=== PATIENT | male | born 1960 | race Caucasian/White ===

== ENCOUNTER 2017-08-23 14:21 | Inpatient (IN) ==
--- NOTE | 2017-08-23 14:55 | Emergency Department Note ---
Disposition Clinical Impression: Suicidal ideation Depression Qualifiers: Depression Type: unspecified Qualified Code(s): F32.9 - Major depressive disorder, single episode, unspecified Disposition: Admitted As Inpatient Condition: Good Referrals: Nicolas Acosta MD [Primary Care Provider] - Time of Disposition: 17:34 General Adult HPI - General Stated complaint: SI/HI Time Seen by Provider: 08/23/17 14:44 Source: patient Mode of arrival: ambulatory Limitations: no limitations Nursing Notes Reviewed: Yes Vital Signs Reviewed: Yes - History of Present Illness HPI Narrative: 56-year-old male presenting to the emergency department with chief complaint of suicidal ideation and plan. The patient states he has had psychiatric issues in the past and has been hospitalized with the last hospitalization occurring approximately 7 years ago. Patient states he has been feeling suicidal due to chronic pain issues and a benign brain tumor he was told he had. Patient stated he was going to himself. Denies homicidal ideation. Denies visual or auditory hallucinations. The patient also denies any intentional ingestions. No new medication changes at this time. Patient does follow with psychiatry as an outpatient. - Related Data Home Medications Medication Instructions Recorded Confirmed Metformin [Glucophage] 1,000 mg PO BIDWM 07/18/15 07/18/15 glipiZIDE [Glucotrol] 10 mg PO 0800 07/18/15 07/18/15 Lisinopril 08/19/17 Previous Rx's Medication Instructions Recorded Cyclobenzaprine [Flexeril] 10 mg PO HS #3 tablet 08/19/17 Diclofenac Potassium 50 mg PO TID PRN #20 tablet 08/19/17 predniSONE [PredniSONE] 20 mg PO BID #10 tablet 08/19/17 Allergies Allergy/AdvReac Type Severity Reaction Status Date / Time hydrocodone [From Vicodin] AdvReac Nausea Verified 08/19/17 16:51 pregabalin [From Lyrica] AdvReac Agitated Verified 08/19/17 16:51 All systems ED: reviewed and negative except as stated. Constitutional: Denies: fever, chills, weakness Eyes: Reports: as per HPI ENT ED: Reports: as per HPI Cardiovascular: Denies: chest pain, palpitations Respiratory: Denies: cough, dyspnea, wheezes Gastrointestinal: Reports: nausea, diarrhea. Denies: abdominal pain Genitourinary: Reports: as per HPI Musculoskeletal: Reports: back pain Integumentary: Reports: as per HPI Neurological: Denies: headache, weakness, numbness, paresthesias Psychiatric: Reports: as per HPI Endocrine: Reports: as per HPI Hematological/Lymphatic: Reports: as per HPI Allergic/Immunologic: Reports: as per HPI Past Medical History - Past Medical History Attestation: Yes The following information was validated with the patient. Medical history: Reports: non-contributory Surgical history: Reports: other Psychiatric history: Reports: anxiety - Social History Smoking Status: Never smoker Smokeless Tobacco Status: No Alcohol use: Reports: none Drug use: Reports: none Physical Exam - General Limitations: no limitations General appearance: alert, in no apparent distress - Head Head exam: atraumatic, normocephalic, normal inspection - Eye Eye exam: Present: normal appearance, PERRL - Neck Neck exam: Present: normal inspection, full ROM - Chest Chest inspection: Present: normal inspection, symmetric chest wall rise. Absent : tenderness - Respiratory Respiratory exam: Present: normal lung sounds bilaterally. Absent: respiratory distress, wheezes - Cardiovascular Cardiovascular exam: Present: regular rate, normal rhythm, normal heart sounds - Abdominal Exam Abdominal exam: Present: soft, Non-Tender. Absent: distention, guarding, rebound - Extremities Exam Extremities exam: Present: normal inspection, full ROM - Neurological Exam Neurological exam: Present: alert, oriented X3 - Psychiatric Psychiatric exam: Present: normal affect, normal mood - Skin Skin exam: Present: warm, intact Course Course Narrative: 56-year-old male presenting to the emergency department for suicidal ideation with plan. We will perform basic lab workup in the emergency department and provide him with a sitter at this time. Once lab work comes back we will reach out to [facility] to determine patient's disposition. - Reevaluation(s) Reevaluation #1: Patient evaluated and accepted by [facility]. patient will now be transferred to inpatient psychiatric services. Time: 17:34 Vital Signs Temperature 98.1 F 08/23/17 15:04 Pulse Rate 100 08/23/17 15:04 Respiratory Rate 18 08/23/17 15:04 Blood Pressure 148/94 08/23/17 15:04 O2 Sat by Pulse Oximetry 95 08/23/17 15:04 Temperature 98.1 F 08/23/17 15:04 Pulse Rate 100 08/23/17 15:04 Respiratory Rate 18 08/23/17 15:04 Blood Pressure 148/94 08/23/17 15:04 O2 Sat by Pulse Oximetry 95 08/23/17 15:04 Oxygen Delivery Oxygen Delivery Room Air Medical Decision Making - Lab Data Result diagrams: 08/23/17 15:10 08/23/17 15:10 Lab Results 08/23/17 08/23/17 08/23/17 Range/Units 15:10 15:10 15:43 WBC 13.8 H (4.3-11.1) K/mcL RBC 4.58 (4.19-5.50) M/mcL Hgb 13.6 (12.9-16.9) g/dL Hct 40.7 (37.5-50.1) % MCV 88.9 (83.0-100.0) fL MCH 29.7 (28.0-33.3) pg MCHC 33.4 (31.6-35.5) g/dL RDW 12.2 (11.5-14.5) % Plt Count 311 (140-400) K/mcL MPV 9.5 (9.4-12.4) fL Immature Gran % 0.3 (0-4) % Seg Neutrophils % 67.2 % Lymphocytes % 19.9 % Monocytes % 7.2 % Eosinophils % 4.6 % Basophils % 0.8 % Neutrophils # 9.3 H (1.6-8.9) K/mcL Lymphocytes # 2.8 (0.6-4.6) K/mcL Monocytes # 1.0 (0.0-1.3) K/mcL Eosinophils # 0.6 (0.0-0.6) K/mcL Basophils # 0.1 (0.0-0.2) K/mcL Sodium 138 (136-145) mEq/L Potassium 4.5 (3.5-4.5) mEq/L Chloride 102 (98-109) mEq/L Carbon Dioxide 25 (19-29) mEq/L BUN 13 (8-26) mg/dL Creatinine 1.19 (0.72-1.25) mg/dL Est GFR ( Amer) > 60 (> 60) Est GFR (Non-Af Amer) > 60 (> 60) BUN/Creatinine Ratio 11 (6-26) Glucose 231 H (70-99) mg/dL Calculated Osmolality 293 (280-300) Calcium 8.9 (8.6-10.8) mg/dL Urine Color Yellow (Yellow) Urine Clarity Clear (Clear) Urine pH 6.0 (5.0-8.0) pH Units Ur Specific [place] 1.017 (1.010-1.025) Urine Protein Negative (Neg-Trace) mg/dL Urine Glucose (UA) >=1000 H (Normal) mg/dL Urine Ketones Negative (Negative) mg/dL Urine Blood Negative (Negative) Urine Nitrite Negative (Negative) Urine Bilirubin Negative (Negative) Urine Urobilinogen Normal (Normal) mg/dL Ur Leukocyte Esterase Negative (Negative) Salicylates < 5.0 L (15-30) mg/dL Urine Opiates Screen (Eqdxwd=050) ng/mL Acetaminophen < 1.0 L (10-30) mcg/mL Ur Barbiturates Screen (Axzywb=562) ng/mL Ur Phencyclidine Scrn (Cutoff=25) ng/mL Ur Amphetamines Screen (Sveppl=7607) ng/mL U Benzodiazepines Scrn (Beabic=612) ng/mL Urine Cocaine Screen (Cutoff= 300) ng/mL U Marijuana (THC) Screen (Cutoff = 50) ng/mL Ethyl Alcohol < 10 (0-10) mg/dL 08/23/17 Range/Units 15:43 WBC (4.3-11.1) K/mcL RBC (4.19-5.50) M/mcL Hgb (12.9-16.9) g/dL Hct (37.5-50.1) % MCV (83.0-100.0) fL MCH (28.0-33.3) pg MCHC (31.6-35.5) g/dL RDW (11.5-14.5) % Plt Count (140-400) K/mcL MPV (9.4-12.4) fL Immature Gran % (0-4) % Seg Neutrophils % % Lymphocytes % % Monocytes % % Eosinophils % % Basophils % % Neutrophils # (1.6-8.9) K/mcL Lymphocytes # (0.6-4.6) K/mcL Monocytes # (0.0-1.3) K/mcL Eosinophils # (0.0-0.6) K/mcL Basophils # (0.0-0.2) K/mcL Sodium (136-145) mEq/L Potassium (3.5-4.5) mEq/L Chloride (98-109) mEq/L Carbon Dioxide (19-29) mEq/L BUN (8-26) mg/dL Creatinine (0.72-1.25) mg/dL Est GFR ( Amer) (> 60) Est GFR (Non-Af Amer) (> 60) BUN/Creatinine Ratio (6-26) Glucose (70-99) mg/dL Calculated Osmolality (280-300) Calcium (8.6-10.8) mg/dL Urine Color (Yellow) Urine Clarity (Clear) Urine pH (5.0-8.0) pH Units Ur Specific [place] (1.010-1.025) Urine Protein (Neg-Trace) mg/dL Urine Glucose (UA) (Normal) mg/dL Urine Ketones (Negative) mg/dL Urine Blood (Negative) Urine Nitrite (Negative) Urine Bilirubin (Negative) Urine Urobilinogen (Normal) mg/dL Ur Leukocyte Esterase (Negative) Salicylates (15-30) mg/dL Urine Opiates Screen Negative (Rygpwh=875) ng/mL Acetaminophen (10-30) mcg/mL Ur Barbiturates Screen Negative (Aywcre=664) ng/mL Ur Phencyclidine Scrn Negative (Cutoff=25) ng/mL Ur Amphetamines Screen Negative (Fggytb=9984) ng/mL U Benzodiazepines Scrn Positive H (Rpfqrs=528) ng/mL Urine Cocaine Screen Negative (Cutoff= 300) ng/mL U Marijuana (THC) Screen Positive H (Cutoff = 50) ng/mL Ethyl Alcohol (0-10) mg/dL
[2017-08-23 15:16] LABS: Basophils # 0.1 K/mcL (0.0-0.2); Basophils % 0.8 %; Eosinophils # 0.6 K/mcL (0.0-0.6); Eosinophils % 4.6 %; Hematocrit 40.7 % (37.5-50.1); Hemoglobin 13.6 g/dL (12.9-16.9); Immature Granulocytes % 0.3 % (0-4); Lymphocytes # 2.8 K/mcL (0.6-4.6); Lymphocytes % 19.9 %; Mean Corpuscular HGB Conc 33.4 g/dL (31.6-35.5); Mean Corpuscular Hemoglobin 29.7 pg (28.0-33.3); Mean Corpuscular Volume 88.9 fL (83.0-100.0); Mean Platelet Volume 9.5 fL (9.4-12.4); Monocytes % 7.2 %; Neutrophils # 9.3 K/mcL (1.6-8.9); Platelet Count 311 K/mcL (140-400); Red Blood Count 4.58 M/mcL (4.19-5.50); Red Cell Distribution Width 12.2 % (11.5-14.5); Segmented Neutrophils % 67.2 %
[2017-08-23 15:29] LABS: BUN/Creatinine Ratio 11 (6-26); Blood Urea Nitrogen 13 mg/dL (8-26); Calcium 8.9 mg/dL (8.6-10.8); Carbon Dioxide 25 mEq/L (19-29); Chloride 102 mEq/L (98-109); Glucose 231 mg/dL (70-99); Osmolality,Calculated 293 (280-300); Potassium 4.5 mEq/L (3.5-4.5); Sodium 138 mEq/L (136-145); eGFR For African Americans > 60 (> 60); eGFR For Non-African Americans > 60 (> 60)
[2017-08-23 15:30] LABS: Acetaminophen < 1.0 mcg/mL (10-30); Ethanol < 10 mg/dL (0-10); Salicylate < 5.0 mg/dL (15-30)
[2017-08-23 15:49] LABS: Bilirubin,Urine Negative (Negative); Blood,Urine Negative (Negative); Clarity,Urine Clear (Clear); Color,Urine Yellow (Yellow); Glucose,Urine (UA) >=1000 mg/dL (Normal); Ketones,Urine Negative (Negative); Leukocyte Esterase,Urine Negative (Negative); Nitrite,Urine Negative (Negative); Protein,Urine Negative (Neg-Trace); Specific Gravity,Urine 1.017 (1.010-1.025); Urobilinogen,Urine Normal (Normal)
[2017-08-23 15:57] LABS: Amphetamine Screen,Urine Negative ng/mL (Cutoff=1000); Barbiturate Screen,Urine Negative ng/mL (Cutoff=200); Benzodiazepines Screen,Urine Positive ng/mL (Cutoff=200); Cannabinoid Screen,Urine Positive ng/mL (Cutoff = 50); Cocaine Screen,Urine Negative ng/mL (Cutoff= 300); Opiate Screen,Urine Negative ng/mL (Cutoff=300); Phencyclidine Screen,Urine Negative ng/mL (Cutoff=25)
--- NOTE | 2017-08-23 16:07 | Emergency Department Note ---
START Narrative - START START: I examined this patient and my medical decision-making was reviewed with the Resident Physician. I agree with the documented findings, disposition and treatment plan as described except to the extent set forth below. 56 -year-old male here for suicidal ideation. Previous psychological problems in the past. We will obtain some screening lab work and urinalysis and consult with one [facility].
[2017-08-23] MEDS ORDERED: Mag Hydrox/Al Hydrox/Simeth 30 ML UDC PO PRN (19:04)
[2017-08-23] MEDS ORDERED: Haloperidol Lactate 5 MG/ML VIAL IM PRN (19:04)
[2017-08-23] MEDS ORDERED: traZODone 50 MG TABLET PO PRN (19:04)
[2017-08-23] MEDS ORDERED: *HR* LORazepam 2 MG/ML VIAL IM PRN (19:04)
[2017-08-23] MEDS ORDERED: *HR* LORazepam 1 MG TABLET PO PRN (19:04)
[2017-08-23] MEDS ORDERED: MOM Conc 10 ML UD.LIQ PO PRN (19:04)
[2017-08-23] MEDS ORDERED: hydrOXYzine pamoate 25 MG CAPSULE PO PRN (19:04)
[2017-08-23] MEDS: Ibuprofen 400 MG TABLET PO PRN (21:45)
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
[2017-08-24] MEDS: Gabapentin 300 MG CAPSULE PO SCH ×2 (16:26→21:21)
[2017-08-24] MEDS: *HR* Metformin 500 MG TABLET PO SCH (16:27)
[2017-08-24] MEDS: tiZANidine 4 MG TABLET PO SCH ×2 (16:27→21:21)
[2017-08-24] MEDS: ALPRAZolam 1 MG TABLET PO PRN (21:21)
[2017-08-24] MEDS: *HR* GlipiZIDE XL (24 HR) 10 MG TABLET PO SCH (22:54)
[2017-08-25] MEDS: *HR* Metformin 500 MG TABLET PO SCH ×2 (08:19→18:07)
[2017-08-25] MEDS: tiZANidine 4 MG TABLET PO SCH ×3 (08:19→20:19)
[2017-08-25] MEDS: Gabapentin 300 MG CAPSULE PO SCH ×3 (08:19→20:19)
[2017-08-25] MEDS: *HR* GlipiZIDE XL (24 HR) 10 MG TABLET PO SCH (08:20)
[2017-08-25] MEDS: ALPRAZolam 1 MG TABLET PO PRN ×2 (08:30→20:18)
[2017-08-25] MEDS: (Liraglutide [Victoza 2-Pak] 0.6 MG) SQ SCH (08:36)
[2017-08-25] MEDS: Ibuprofen 400 MG TABLET PO PRN ×2 (13:23→19:42)
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
[2017-08-26] MEDS: Gabapentin 300 MG CAPSULE PO SCH ×3 (08:14→21:13)
[2017-08-26] MEDS: ALPRAZolam 1 MG TABLET PO PRN ×2 (08:14→21:12)
[2017-08-26] MEDS: *HR* Metformin 500 MG TABLET PO SCH ×2 (08:14→17:14)
[2017-08-26] MEDS: tiZANidine 4 MG TABLET PO SCH ×3 (08:15→21:12)
[2017-08-26] MEDS: *HR* GlipiZIDE XL (24 HR) 10 MG TABLET PO SCH (08:15)
[2017-08-26] MEDS: (Liraglutide [Victoza 2-Pak] 0.6 MG) SQ SCH (08:15)
[2017-08-26] MEDS: Ibuprofen 400 MG TABLET PO PRN ×2 (09:18→21:12)
--- NOTE | 2017-08-26 09:18 | Psychiatry Progress Note ---
Date of Encounter: 08/26/17 Time of Encounter: 09:14 Subjective Interval history: Client reports he is feeling better. Some fluctuations in mood but SI has lessened. Staff have confirmed with his brother that the gun has been removed from the home. Client can return home and his daughter has agreed to come by and check on him and help manage his medications. Client is resistant claiming his daughter is too busy but staff are reinforcing that it would be a good idea to let her be involved. Ultimately client intends to live with his brother in [place] but will need to be at home for a transitional period before the move can be made. On the unit he has been social and engaged. Discussed discharge. Client was hesitant at first but ultimately agreed to discharge tomorrow. Review of Systems Constitutional: Denies: fever, chills, weakness, weight change Eyes: Denies: eye pain, vision change Ears, Nose, Throat: Denies: ear pain, throat pain, dental pain, hearing loss, congestion Cardiovascular: Denies: chest pain, palpitations, dyspnea on exertion Respiratory: Denies: cough, dyspnea, wheezes Gastrointestinal: Denies: abdominal pain, nausea, vomiting, diarrhea, constipation Musculoskeletal: Denies: joint swelling, joint pain Neurological: Denies: headache, weakness, numbness, memory loss Psychiatric: Reports: depression, suicidal ideation Objective: Exam Patient orientation: Yes Person, Yes Time, Yes Place Level of alertness: Alert Patient appearance: Appropriate, Well Groomed Behavior: calm, cooperative Psychomotor activity: Normal Eye contact: Maintains Eye Contact Mood description: Euthymic/stable Affect description: congruent with mood, full range Speech pattern: Normal rate Speech volume: Normal Thought process: Linear, Goal Oriented Thought content: No Suicidal ideation, No Homicidal ideation, No Overt delusions Perceptual disturbances: No Auditory hallucinations, No Visual hallucinations Judgment: Fair Insight: Partial Results - Vital Signs Vital Signs: Temp Pulse Resp BP Pulse Ox 97.2 F L 85 16 125/96 95 08/26/17 08:31 08/26/17 08:31 08/26/17 08:31 08/26/17 08:31 08/23/17 15:04 - Labs Labs: Laboratory Results - last 24 hr 08/25/17 08/26/17 18:06 07:59 POC Glucose 305 H 163 H Assessment and Plan (1) Depression Current visit: Yes Status: Acute Plan: Continue hospitalization, Close observation, Suicide Precautions per unit protocol, Encourage participation in unit milieu, Group Therapy, Monitor sleep, Monitor appetite Risks, benefits, side effects, alternatives discussed w/pt: Yes Patient agreeable to treatment: Yes Qualifiers: Depression Type: major depressive disorder Major depression recurrence: recurrent Active/Remission status: currently active Major depression episode severity: severe Psychotic features: without psychotic features Qualified Code(s): F33.2 - Major depressive disorder, recurrent severe without psychotic features Consult Discharge Plan - Plan Referrals: [facility] [Outside] - 09/21/17 2:00 pm (The above appointment is with Ina Smith for mental health counseling services. You will also see Dr. Almeida for outpatient psychiatric assessment and medication management services on 10/15/2017 at 8:40am. Please arrive 10 minutes early to all appointments to complete the check-in process. If you are unable to keep these appointments, 24 hour business notice of cancellation is expected. The above appointment(s) reflects first availability. You may contact the office regularly to check for cancellations that may allow you to be seen sooner. )
[2017-08-27] MEDS: tiZANidine 4 MG TABLET PO SCH (08:17)
[2017-08-27] MEDS: *HR* GlipiZIDE XL (24 HR) 10 MG TABLET PO SCH (08:17)
[2017-08-27] MEDS: Gabapentin 300 MG CAPSULE PO SCH (08:17)
[2017-08-27] MEDS: ALPRAZolam 1 MG TABLET PO PRN (08:17)
[2017-08-27] MEDS: *HR* Metformin 500 MG TABLET PO SCH (08:17)
[2017-08-27] MEDS: (Liraglutide [Victoza 2-Pak] 0.6 MG) SQ SCH (08:19)
[2017-08-27 08:23] VITALS: BP 157/91
[2017-08-27] MEDS: Ibuprofen 400 MG TABLET PO PRN (09:17)
--- NOTE | 2017-08-27 10:17 | Discharge Summary ---
Date of Encounter: 08/27/17 Time of Encounter: 10:09 Diagnosis - Discharge Diagnosis (1) Depression Status: Acute Qualifiers: Depression Type: major depressive disorder Major depression recurrence: recurrent Active/Remission status: currently active Major depression episode severity: severe Psychotic features: without psychotic features Qualified Code(s): F33.2 - Major depressive disorder, recurrent severe without psychotic features Medications - Discharge Medications Prescriptions: Quetiapine Fumarate [Seroquel] 50 mg PO HS PRN #60 tablet PRN Reason: Insomnia Liraglutide [Victoza 2-Ivan] 0.6 mg SQ DAILY 08/24/17 [History] Tizanidine HCl 4 mg PO TID 08/24/17 [History] ALPRAZolam [Xanax 1 MG Tablet] 1 mg PO BID PRN tablet 08/27/17 [Rx] Diclofenac Sodium [Voltaren] 50 mg PO TID PRN tablet. 08/27/17 [Rx] Escitalopram [Lexapro] 20 mg PO DAILY tablet 08/27/17 [Rx] Gabapentin [Neurontin] 900 mg PO TID capsule 08/27/17 [Rx] GlipiZIDE XL (24 HR) [Glucotrol XL] 10 mg PO DAILY tab.er.24 08/27/17 [Rx] Lisinopril [Zestril] 10 mg PO DAILY tablet 08/27/17 [Rx] Quetiapine Fumarate [Seroquel] 50 mg PO HS PRN #60 tablet 08/27/17 [Rx] metFORMIN [Glucophage] 1,000 mg PO BIDWM tablet 08/27/17 [Rx] 3 Allergy/AdvReac Type Severity Reaction Status Date / Time hydrocodone [From Vicodin] AdvReac Nausea Verified 08/19/17 16:51 pregabalin [From Lyrica] AdvReac Agitated Verified 08/19/17 16:51 Provider Date of admission: 08/23/17 17:38 Primary care physician: PCP NONE Discharging clinician: Geno Serrano Assessment and Plan - Patient/Caregiver Discharge Instructions Activity: resume usual activities as tolerated Diet: diabetic diet - Follow up Plan Follow up with: [facility] [Outside] - 09/21/17 2:00 pm (The above appointment is with Ina Smith for mental health counseling services. You will also see Dr. Almeida for outpatient psychiatric assessment and medication management services on 10/15/2017 at 8:40am. Please arrive 10 minutes early to all appointments to complete the check-in process. If you are unable to keep these appointments, 24 hour business notice of cancellation is expected. The above appointment(s) reflects first availability. You may contact the office regularly to check for cancellations that may allow you to be seen sooner. ) Overall status at discharge: Stable Disposition: Home, Self-Care Hospital Course Hospital course: Mr. Barlow is a 56 year old male who was admitted secondary to SI. His Lexapro was increased and he took prn Seroquel at night with positive results. Throughout his inpatient stay he was calm and cooperative. He attended and participated in groups. He consistently denied SI. Staff verified that a family member was able to remove the gun from his home. His daughter volunteered to bring him his meds every day. Ultimately Heriberto hopes to live with a brother in [place] but is excited to return to his own place for now. He has been bright and social on the unit. He has outpatient services in place and will be following up with his psychiatrist in a couple of weeks. - Time Spent with Patient Total time spent providing and/or coordinating discharge services: Quality - Multiple Antipsychotics Patient discharged on 2 or more antipsychotic medications: No Procedures - Procedures Procedures: Medication Management, Crisis Stabilization, Supportive Therapy, Group Therapy Mental Status Exam - Mental Status Exam Patient orientation: Yes Person, Yes Time, Yes Place Level of alertness: Alert Patient appearance: Appropriate, Well Groomed Behavior: calm, cooperative Psychomotor activity: Normal Eye contact: Maintains Eye Contact Mood description: Euthymic/stable Affect description: congruent with mood, full range Speech pattern: Normal rate, Normal rhythm, Normal tone Speech Volume: Normal Thought process: Linear, Goal Oriented Thought Content: No Suicidal ideation, No Homicidal ideation, No Overt delusions Perceptual Disturbances: No Auditory hallucinations, No Visual hallucinations Judgment: Fair Insight: Partial
[2017-08-27] MEDS ORDERED: FLUARIX QUAD 2017-18 36MOS UP/PF 0.5 ML SYRINGE IM ONE (10:43)
== END 2017-08-27 11:20 | disposition home or self-care (01) | DRG 885 ==
LOC: EMEROO 14:21 → 1ANU 17:38
PROVIDERS: ADMIT Psychiatry & Neurology Psychiatry; ATTEND Psychiatry & Neurology Psychiatry

== ENCOUNTER 2018-01-21 20:41 | Inpatient (IN) ==
[2018-01-21] MEDS ORDERED: Ondansetron 4 MG/2 ML VIAL IVP ONE (21:11)
--- NOTE | 2018-01-21 21:16 | Emergency Department Note ---
Overdose - Lab Data Result diagrams: 01/21/18 21:12 01/21/18 21:12 Lab Results 01/21/18 01/21/18 01/21/18 Range/Units 21:12 21:12 21:45 WBC 7.7 (4.3-11.1) K/mcL RBC 4.83 (4.19-5.50) M/mcL Hgb 14.2 (12.9-16.9) g/dL Hct 43.2 (37.5-50.1) % MCV 89.4 (83.0-100.0) fL MCH 29.4 (28.0-33.3) pg MCHC 32.9 (31.6-35.5) g/dL RDW 13.0 (11.5-14.5) % Plt Count 295 (140-400) K/mcL MPV 9.8 (9.4-12.4) fL Immature Gran % 0.1 (0-4) % Seg Neutrophils % 51.9 % Lymphocytes % 32.7 % Monocytes % 9.5 % Eosinophils % 5.1 % Basophils % 0.7 % Neutrophils # 4.0 (1.6-8.9) K/mcL Lymphocytes # 2.5 (0.6-4.6) K/mcL Monocytes # 0.7 (0.0-1.3) K/mcL Eosinophils # 0.4 (0.0-0.6) K/mcL Basophils # 0.1 (0.0-0.2) K/mcL Sodium 137 (136-145) mEq/L Potassium 4.2 (3.5-5.1) mEq/L Chloride 100 (98-107) mEq/L Carbon Dioxide 27 (23-29) mEq/L BUN 11 (6-20) mg/dL Creatinine 1.19 (0.70-1.30) mg/dL Est GFR ( Amer) > 60 (> 60) Est GFR (Non-Af Amer) > 60 (> 60) BUN/Creatinine Ratio 9 (6-26) Glucose 186 H (70-105) mg/dL POC Glucose (58-89) Calculated Osmolality 288 (280-300) Calcium 9.4 (8.6-10.3) mg/dL Magnesium 2.0 (1.6-2.6) mg/dL Urine Color Yellow (Yellow) Urine Clarity Clear (Clear) Urine pH 6.5 (5.0-8.0) pH Units Ur Specific [place] 1.010 (1.010-1.025) Urine Protein Negative (Neg-Trace) mg/dL Urine Glucose (UA) 250 H (Normal) mg/dL Urine Ketones Negative (Negative) mg/dL Urine Blood Negative (Negative) Urine Nitrite Negative (Negative) Urine Bilirubin Negative (Negative) Urine Urobilinogen Normal (Normal) mg/dL Ur Leukocyte Esterase Negative (Negative) Salicylates < 5.0 L (15.0-30.0) mg/dL Urine Opiates Screen (Xmarfu=856) ng/mL Acetaminophen < 1.0 L (10-30) mcg/mL Ur Barbiturates Screen (Ruelul=706) ng/mL Ur Phencyclidine Scrn (Cutoff=25) ng/mL Ur Amphetamines Screen (Noesqi=9386) ng/mL U Benzodiazepines Scrn (Fmfqlh=188) ng/mL Urine Cocaine Screen (Cutoff= 300) ng/mL U Marijuana (THC) Screen (Cutoff = 50) ng/mL Ethyl Alcohol 44 H (0-10) mg/dL 01/21/18 01/21/18 Range/Units 21:48 22:04 WBC (4.3-11.1) K/mcL RBC (4.19-5.50) M/mcL Hgb (12.9-16.9) g/dL Hct (37.5-50.1) % MCV (83.0-100.0) fL MCH (28.0-33.3) pg MCHC (31.6-35.5) g/dL RDW (11.5-14.5) % Plt Count (140-400) K/mcL MPV (9.4-12.4) fL Immature Gran % (0-4) % Seg Neutrophils % % Lymphocytes % % Monocytes % % Eosinophils % % Basophils % % Neutrophils # (1.6-8.9) K/mcL Lymphocytes # (0.6-4.6) K/mcL Monocytes # (0.0-1.3) K/mcL Eosinophils # (0.0-0.6) K/mcL Basophils # (0.0-0.2) K/mcL Sodium (136-145) mEq/L Potassium (3.5-5.1) mEq/L Chloride (98-107) mEq/L Carbon Dioxide (23-29) mEq/L BUN (6-20) mg/dL Creatinine (0.70-1.30) mg/dL Est GFR ( Amer) (> 60) Est GFR (Non-Af Amer) (> 60) BUN/Creatinine Ratio (6-26) Glucose (70-105) mg/dL POC Glucose 194 H (58-89) Calculated Osmolality (280-300) Calcium (8.6-10.3) mg/dL Magnesium (1.6-2.6) mg/dL Urine Color (Yellow) Urine Clarity (Clear) Urine pH (5.0-8.0) pH Units Ur Specific [place] (1.010-1.025) Urine Protein (Neg-Trace) mg/dL Urine Glucose (UA) (Normal) mg/dL Urine Ketones (Negative) mg/dL Urine Blood (Negative) Urine Nitrite (Negative) Urine Bilirubin (Negative) Urine Urobilinogen (Normal) mg/dL Ur Leukocyte Esterase (Negative) Salicylates (15.0-30.0) mg/dL Urine Opiates Screen Negative (Gsisff=067) ng/mL Acetaminophen (10-30) mcg/mL Ur Barbiturates Screen Negative (Ysnfca=311) ng/mL Ur Phencyclidine Scrn Negative (Cutoff=25) ng/mL Ur Amphetamines Screen Negative (Lsnljo=1526) ng/mL U Benzodiazepines Scrn Positive H (Jnoczu=679) ng/mL Urine Cocaine Screen Negative (Cutoff= 300) ng/mL U Marijuana (THC) Screen Negative (Cutoff = 50) ng/mL Ethyl Alcohol (0-10) mg/dL - EKG Data EKG attestation: Yes I reviewed and interpreted this EKG. EKG results narrative: Sinus tachycardia with a rate of 101. Electrical indices are within normal limits with QRS duration of 90 ms. [place] is normal. No acute ST or T-wave abnormalities. Overdose HPI - General Chief Complaint: ED Overdose Stated Complaint: OD/SI Time Seen by Provider: 01/21/18 20:44 Source: EMS Limitations: altered mental status Nursing Notes Reviewed: Yes Vital Signs Reviewed: Yes - History of Present Illness HPI Narrative: Patient presents ED because of suicidal attempt. He states that through the day today he took a total of 64 g of Neurontin, 50 mg of lisinopril and 21 mg of Xanax. He did this with intent of killing himself. Denies any other ingestions. No other infliction of self-harm. Previous suicide attempt by hanging. No recent medical complaints. The overdose was spread over the previous 6 hours with his last ingestion about 90 minutes ago. Pt Subjective Complaint: intentional overdose Onset (ago): hour(s) Timing confirmed by: family member Intent: suicide attempt How Overdose Was Discovered: called family/friend Treatments Prior to Arrival: narcan - Related Data Home Medications Medication Instructions Recorded Confirmed Tizanidine HCl 4 mg PO TID 08/24/17 01/21/18 ALPRAZolam [Xanax 1 MG Tablet] 1 mg PO BID 01/21/18 01/21/18 Albuterol Sulfate [Proair Hfa] 2 puff IH Q4H PRN 01/21/18 01/21/18 Escitalopram [Lexapro] 10 mg PO DAILY 01/21/18 01/21/18 Gabapentin [Neurontin] 800 mg PO TID 01/21/18 01/21/18 Lantus Solostar 01/21/18 01/21/18 Lisinopril [Zestril] 10 mg PO BID 01/21/18 01/21/18 Ranitidine HCl [Zantac] 150 mg PO BID 01/21/18 01/21/18 Previous Rx's Medication Instructions Recorded GlipiZIDE XL (24 HR) [Glucotrol XL] 10 mg PO DAILY tab.er.24 08/27/17 Quetiapine Fumarate [Seroquel] 50 mg PO HS PRN #60 tablet 08/27/17 metFORMIN [Glucophage] 1,000 mg PO BIDWM tablet 08/27/17 Allergies Allergy/AdvReac Type Severity Reaction Status Date / Time hydrocodone [From Vicodin] AdvReac Nausea Verified 08/19/17 16:51 pregabalin [From Lyrica] AdvReac Agitated Verified 08/19/17 16:51 All systems ED: reviewed and negative except as stated. Constitutional: Denies: fever Eyes: Denies: eye pain ENT ED: Denies: ear pain Cardiovascular: Denies: chest pain, palpitations Respiratory: Denies: cough, dyspnea Gastrointestinal: Denies: abdominal pain, nausea, vomiting Genitourinary: Denies: urgency Neurological: Denies: headache, weakness Psychiatric: Reports: depression, suicidal thoughts Past Medical History - Past Medical History Attestation: Yes The following information was validated with the patient. Medical history: Reports: non-contributory, arthritis, diabetes, hypertension Surgical history: Reports: other Psychiatric history: Reports: depression, previous psychiatric hospitalization - Social History Smoking Status: Never smoker Smokeless Tobacco Status: No Alcohol use: Reports: none Drug use: Reports: none Physical Exam - General General appearance: alert, in no apparent distress - Head Head exam: atraumatic, normocephalic - Eye Eye exam: Present: normal appearance, PERRL - ENT ENT exam: mucous membranes dry - Neck Neck exam: Present: trachea midline - Chest Chest inspection: Present: normal inspection - Respiratory Respiratory exam: Present: normal lung sounds bilaterally. Absent: respiratory distress - Cardiovascular Cardiovascular exam: Present: regular rate, normal rhythm - Abdominal Exam Abdominal exam: Present: soft, Non-Tender - Extremities Exam Extremities exam: Present: normal inspection - Back Exam Back exam: Absent: CVA tenderness (R), CVA tenderness (L) - Neurological Exam Neurological exam: Present: alert, oriented X3 - Psychiatric Psychiatric exam: Present: flat affect - Skin Skin exam: Present: warm, dry Course - Reevaluation(s) Reevaluation #1: Pt drank the 50 grams of activated charcoal. Time: 21:53 Reevaluation #2: Patient remains awake and alert. If he truly took that much Neurontin I would expect him to have some degree of somnolence and he would certainly be at risk for paradoxical seizures. He will be placed on seizure precautions as well as suicide precautions and admitted to telemetry. Discussed with to admit The high probability of a clinically significant, sudden or life threatening deterioration of the [ELECTRICAL AND INSTRUMENTATION MANAGER, cardiopulmonary] system(s) required my full and direct attention, intervention and personal management. The aggregate critical care time was [] minutes. This time is in addition to time spent performing reported procedures but includes the following: [x] Data Review and interpretation [x] Patient assessment and monitoring of vital signs [x] Documentation [x] Medication orders and management Time: 22:50 Vital Signs Temperature 98.1 F 01/21/18 20:43 Pulse Rate 106 01/21/18 20:43 Respiratory Rate 16 01/21/18 20:43 Blood Pressure 145/95 01/21/18 20:43 O2 Sat by Pulse Oximetry 92 01/21/18 20:43 Temperature 98.1 F 01/21/18 20:43 Pulse Rate 90 01/21/18 22:28 Respiratory Rate 18 01/21/18 22:28 Blood Pressure 133/84 01/21/18 22:28 O2 Sat by Pulse Oximetry 100 01/21/18 22:28 Oxygen Delivery Oxygen Delivery Nasal Cannula Disposition Clinical Impression: Suicide attempt by drug ingestion Qualifiers: Encounter type: initial encounter Qualified Code(s): T50.902A - Poisoning by unspecified drugs, medicaments and biological substances, intentional self-harm , initial encounter Disposition: Admitted As Inpatient Condition: Fair Referrals: NONE,PCP [Primary Care Provider] - Forms: ED Satisfaction Letter Time of Disposition: 22:51
[2018-01-21 21:23] LABS: Basophils # 0.1 K/mcL (0.0-0.2); Basophils % 0.7 %; Eosinophils # 0.4 K/mcL (0.0-0.6); Eosinophils % 5.1 %; Hematocrit 43.2 % (37.5-50.1); Hemoglobin 14.2 g/dL (12.9-16.9); Immature Granulocytes % 0.1 % (0-4); Lymphocytes # 2.5 K/mcL (0.6-4.6); Lymphocytes % 32.7 %; Mean Corpuscular HGB Conc 32.9 g/dL (31.6-35.5); Mean Corpuscular Hemoglobin 29.4 pg (28.0-33.3); Mean Corpuscular Volume 89.4 fL (83.0-100.0); Mean Platelet Volume 9.8 fL (9.4-12.4); Monocytes # 0.7 K/mcL (0.0-1.3); Monocytes % 9.5 %; Platelet Count 295 K/mcL (140-400); Red Blood Count 4.83 M/mcL (4.19-5.50); Segmented Neutrophils % 51.9 %
[2018-01-21] MEDS: 0.9 % Sodium Chloride 1,000 ML IVC SCH (21:27)
[2018-01-21 21:36] LABS: Ethanol 44 mg/dL (0-10)
[2018-01-21 21:39] LABS: Acetaminophen < 1.0 mcg/mL (10-30); Salicylate < 5.0 mg/dL (15.0-30.0)
[2018-01-21 21:43] LABS: BUN/Creatinine Ratio 9 (6-26); Blood Urea Nitrogen 11 mg/dL (6-20); Calcium 9.4 mg/dL (8.6-10.3); Carbon Dioxide 27 mEq/L (23-29); Chloride 100 mEq/L (98-107); Glucose 186 mg/dL (70-105); Osmolality,Calculated 288 (280-300); Potassium 4.2 mEq/L (3.5-5.1); Sodium 137 mEq/L (136-145); eGFR For African Americans > 60 (> 60); eGFR For Non-African Americans > 60 (> 60)
[2018-01-21 22:10] LABS: Bilirubin,Urine Negative (Negative); Blood,Urine Negative (Negative); Clarity,Urine Clear (Clear); Color,Urine Yellow (Yellow); Glucose,Urine (UA) 250 mg/dL (Normal); Ketones,Urine Negative (Negative); Leukocyte Esterase,Urine Negative (Negative); Nitrite,Urine Negative (Negative); PH,Urine 6.5 pH Units (5.0-8.0); Protein,Urine Negative (Neg-Trace); Urobilinogen,Urine Normal (Normal)
[2018-01-21 22:13] LABS: Amphetamine Screen,Urine Negative ng/mL (Cutoff=1000); Barbiturate Screen,Urine Negative ng/mL (Cutoff=200); Benzodiazepines Screen,Urine Positive ng/mL (Cutoff=200); Cannabinoid Screen,Urine Negative ng/mL (Cutoff = 50); Cocaine Screen,Urine Negative ng/mL (Cutoff= 300); Opiate Screen,Urine Negative ng/mL (Cutoff=300); Phencyclidine Screen,Urine Negative ng/mL (Cutoff=25)
[2018-01-22] MEDS ORDERED: Naloxone 0.4 MG/ML INJ IVP PRN (02:25)
[2018-01-22] MEDS ORDERED: D5% in Water 1,000 ML IVC PRN (02:28)
[2018-01-22] MEDS ORDERED: Dextrose Gel 15 GM/37.5 ML TUBE PO PRN ×2 (02:28)
[2018-01-22] MEDS ORDERED: *HR* Dextrose 50 % in Water (Syg) 50 ML SYRINGE IVP PRN (02:28)
--- NOTE | 2018-01-22 03:11 | Internal Med History&Physical ---
Date of Encounter: 01/22/18 Time of Encounter: 01:45 Assessment and Plan (1) Suicide attempt by drug ingestion Current visit: Yes Status: Acute 1. 24 hour sitter and suicide precautions. 2. Will monitor on telemetry and serial EKG's. 3. Charcoal given in ER. 4. Consult psychiatry for ongoing treatment and likely inpatient psychiatric care once stable medically. Qualifiers: Encounter type: initial encounter Qualified Code(s): T50.902A - Poisoning by unspecified drugs, medicaments and biological substances, intentional self- harm, initial encounter (2) Type 2 diabetes mellitus Current visit: Yes Status: Chronic 1. Hold oral home meds. 2. Will place on SSI and monitor glucose and adjust dosing as necessary. Qualifiers: Diabetes mellitus terminal make up operator insulin use: with residential use Diabetes mellitus complication status: without complication Qualified Code(s): E11.9 - Type 2 diabetes mellitus without complications; Z79.4 - terminal manager (current) use of insulin; Z79.4 - FPC (current) use of insulin; Z79.4 - [facility]PC ( current) use of insulin; Z79.4 - terminal manager (current) use of insulin (3) DVT prophylaxis Current visit: Yes Status: Acute 1. Heparin SQ. Internal Medicine - H&P: HPI Chief complaint: suicide attempt Admitted From: Emergency Dept Plans for Post Hospital Care: Transfer Psych Facility History of present illness: Mr. Barlow is a 57 year old male who presents to ER tonight after attempting suicide. He reportedly took an excessive amount of his Neurontin, Lisinopril, and Xanax in an attempt to end his life. In the ER, patient was administered charcoal and observed for some time. Routine labs were obtained, which were essentially negative. He was admitted to hospitalist service for medical management with psychiatry consultation. Upon my assessment of the patient, he is alert and oriented 3. He appears in no distress. He admits to the above history. However, he seems a little jovial and not very upset or depressed. He states his left him and, when he returned to his home today, he noticed that his moved out and took all the furniture and belongings with her. As such, he tried to kill himself and his daughters brought him to the ER. He states he's had prior suicide attempts , but he also states that this time he really means it. Past Med Surg Social Fam HX - Past Medical History Attestation: Yes The following information was validated with the patient. Source: patient, old records reviewed Medical history: arthritis, diabetes, hypertension Psychiatric history: anxiety, depression, previous psychiatric hospitalization - Past Surgical History Surgical History: orthopedic, other - Social History Smoking Status: Never smoker Smokeless Tobacco Status: No Alcohol use: occasionally Drug use: prescription drug abuse Current living situation: Home, With Family Activity Level: Independent ambulation Recent Out of Country Travel Within the Last 8 Weeks: No - Family History Mother Living Status: Father Living Status: Internal Medicine - H&P: Meds Tizanidine HCl 4 mg PO TID 08/24/17 [History] GlipiZIDE XL (24 HR) [Glucotrol XL] 10 mg PO DAILY tab.er.24 08/27/17 [Rx] Quetiapine Fumarate [Seroquel] 50 mg PO HS PRN #60 tablet 08/27/17 [Rx] metFORMIN [Glucophage] 1,000 mg PO BIDWM tablet 08/27/17 [Rx] ALPRAZolam [Xanax 1 MG Tablet] 1 mg PO BID 01/21/18 [History] Albuterol Sulfate [Proair Hfa] 2 puff IH Q4H PRN 01/21/18 [History] Escitalopram [Lexapro] 10 mg PO DAILY 01/21/18 [History] Gabapentin [Neurontin] 800 mg PO TID 01/21/18 [History] Lantus Solostar 01/21/18 [History] Lisinopril [Zestril] 10 mg PO BID 01/21/18 [History] Ranitidine HCl [Zantac] 150 mg PO BID 01/21/18 [History] 3 Allergy/AdvReac Type Severity Reaction Status Date / Time hydrocodone [From Vicodin] AdvReac Nausea Verified 08/19/17 16:51 pregabalin [From Lyrica] AdvReac Agitated Verified 08/19/17 16:51 - Constitutional Constitutional: no chills, no fever(s), no night sweats - EENT Eyes: no blurry vision, no change in vision Ears: no ear pain, no tinnitus Nose, mouth and throat: no nasal congestion, no sinus pressure, no sore throat - Cardiovascular Cardiovascular ROS IM: no chest pain, no dyspnea, no dyspnea on exertion - Respiratory Respiratory: no cough, no hemoptysis, no chest congestion - Gastrointestinal Gastrointestinal: no abdominal pain, no diarrhea, no hematemesis, no hematochezia, no melena, no vomiting - Genitourinary Genitourinary ROS male: no dysuria, no flank pain, no hematuria - Musculoskeletal Musculoskeletal ROS IM: no arthralgias, no back pain - Integumentary Integumentary IM: no rash, no jaundice - Neurological Neurological ROS: no dizziness, no focal weakness, no frequent falls, no headache(s) - Psychiatric Psychiatric: depression, suicidal ideation, no anxiety, no hallucinations - Endocrine Endocrine IM: no polydipsia, no polyuria - Hematologic/Lymphatic Hematologic/Lymphatic: no easy bruising, no lymphadenopathy - Allergic/Immunologic Allergic/Immunologic: no wheezing, no GI upset with certain foods - Constitutional Vitals: Temp Pulse Resp BP Pulse Ox 97.7 F 92 18 132/84 97 01/22/18 00:15 01/22/18 00:15 01/22/18 00:15 01/22/18 00:15 01/22/18 00:15 General appearance: Present: cooperative, A&O X 3, pleasant Exam: a little too jovial - Head Head exam: Present: atraumatic, normal inspection - Expanded Head Exam Head exam expanded: Absent: abrasion, contusion, general tenderness - Eye Eye exam: Present: EOMI, normal appearance, PERRL. Absent: scleral icterus Pupils: Present: normal accommodation - ENT ENT exam: Present: mucous membranes dry, normal exam, normal oropharynx - Neck Neck exam general surgery: Present: full ROM, supple. Absent: lymphadenopathy, tenderness, nuchal rigidity, thyromegaly - Respiratory Respiratory exam: Present: CTAB. Absent: chest wall tenderness, rales, respiratory distress, rhonchi, wheezes - Cardiovascular Cardiovascular exam: Present: RRR, +S1, +S2. Absent: diastolic murmur, systolic murmur - GI/Abdominal GI/Abdominal exam: Present: normal bowel sounds, soft. Absent: guarding, hepatomegaly, mass, rebound, splenomegaly, tenderness - Extremities Exam Extremities exam: Present: full ROM, normal capillary refill, warm, radial pulses palpable and symmetrical. Absent: calf tenderness, joint swelling, pedal edema, tenderness - Back Exam Back exam: Absent: CVA tenderness (L), CVA tenderness (R) - Neurological Exam Neurological exam: Present: alert, CN II-XII intact, oriented X3, no focal deficits, strengths equal and symetr throughout - Psychiatric Psychiatric exam: Present: suicidal ideation. Absent: homicidal ideation Additional comments: he seems a little too jovial - Skin Skin exam: Present: dry, warm. Absent: rash Internal Med - H&P Results - Labs CBC & Chem 7: 01/21/18 21:12 01/21/18 21:12 - EKG Data -: EKG Interpreted by Myself EKG shows normal: sinus rhythm - EKG Data EKG comments: 01/22/18 03:17 NSR; no QRS, QTc prolongation
[2018-01-22 05:22] LABS: Basophils # 0.1 K/mcL (0.0-0.2); Basophils % 0.8 %; Eosinophils # 0.5 K/mcL (0.0-0.6); Eosinophils % 7.6 %; Hematocrit 39.8 % (37.5-50.1); Immature Granulocytes % 0.3 % (0-4); Lymphocytes # 2.9 K/mcL (0.6-4.6); Lymphocytes % 44.3 %; Mean Corpuscular HGB Conc 32.7 g/dL (31.6-35.5); Mean Corpuscular Hemoglobin 29.3 pg (28.0-33.3); Mean Corpuscular Volume 89.6 fL (83.0-100.0); Mean Platelet Volume 9.9 fL (9.4-12.4); Monocytes # 0.7 K/mcL (0.0-1.3); Neutrophils # 2.3 K/mcL (1.6-8.9); Platelet Count 266 K/mcL (140-400); Red Blood Count 4.44 M/mcL (4.19-5.50); Red Cell Distribution Width 13.2 % (11.5-14.5)
[2018-01-22 05:27] LABS: Alanine Aminotransferase 22 Units/L (7-52); Albumin 3.9 g/dL (3.5-5.7); Albumin/Globulin Ratio 1.6 (1.1-2.2); Alkaline Phosphatase 91 Units/L (34-104); Aspartate Amino Transferase 15 Units/L (13-39); BUN/Creatinine Ratio 7 (6-26); Bilirubin,Total 0.3 mg/dL (0.3-1.0); Blood Urea Nitrogen 8 mg/dL (6-20); Calcium 8.6 mg/dL (8.6-10.3); Carbon Dioxide 25 mEq/L (23-29); Chloride 105 mEq/L (98-107); Globulin 2.5 g/dL (2.4-3.5); Glucose 227 mg/dL (70-105); Magnesium 1.9 mg/dL (1.6-2.6); Osmolality,Calculated 289 (280-300); Potassium 4.3 mEq/L (3.5-5.1); Sodium 137 mEq/L (136-145); Total Protein 6.4 g/dL (6.4-8.9); eGFR For African Americans > 60 (> 60); eGFR For Non-African Americans > 60 (> 60)
[2018-01-22 05:32] LABS: Prothrombin Time 10.8 Seconds (9.4-12.1)
[2018-01-22 05:35] LABS: Activated Partial Thrombo Time 30.9 Seconds (26.0-36.0)
[2018-01-22] MEDS: *HR* Heparin 5,000 UNIT/ML VIAL SQ SCH ×3 (05:50→20:41)
[2018-01-22] MEDS: 0.9 % Sodium Chloride 1,000 ML IVC SCH ×3 (05:50→21:48)
[2018-01-22] MEDS: Insulin LISPRO 300 UNITS/3 ML VIAL SQ SCH ×3 (07:56→17:34)
[2018-01-22] MEDS: Famotidine 20 MG TABLET PO SCH ×2 (07:56→17:34)
[2018-01-22 09:28] LABS: Hemoglobin A1C 9.9 %
[2018-01-22] MEDS: Acetaminophen 325 MG TABLET PO PRN ×2 (11:57→20:48)
--- NOTE | 2018-01-22 13:38 | Consult Note ---
Date of Encounter: 01/22/18 Time of Encounter: 13:00 Assessment & Recommendation (1) Suicide attempt by drug ingestion Current visit: Yes Status: Acute Assessment & Recommendation: continue 1:1 Qualifiers: Encounter type: initial encounter Qualified Code(s): T50.902A - Poisoning by unspecified drugs, medicaments and biological substances, intentional self- harm, initial encounter (2) Depression Current visit: No Status: Acute Assessment & Recommendation: continue lexapro 10 mg po am Qualifiers: Depression Type: major depressive disorder Major depression recurrence: recurrent Active/Remission status: currently active Major depression episode severity: severe Psychotic features: without psychotic features Qualified Code(s): F33.2 - Major depressive disorder, recurrent severe without psychotic features (3) Type 2 diabetes mellitus Current visit: Yes Status: Chronic Qualifiers: Diabetes mellitus termination clerk insulin use: with termination clerk use Diabetes mellitus complication status: without complication Qualified Code(s): E11.9 - Type 2 diabetes mellitus without complications; Z79.4 - technician terminal and repeater (current) use of insulin; Z79.4 - assisted (current) use of insulin; Z79.4 - technician terminal and repeater ( current) use of insulin; Z79.4 - assisted (current) use of insulin History of Present Illness Patient: known to practice within the last 3 years Requesting Physician: Vanessa Ariza CNP Reason for consult: suicide attempt History of present illness: Mr. Barlow is a 57 year old male was consulted for suicide attempt. Patient is known to psych , he was admitted in 09/01 for suicidal ideation then and treed and was following Dr Almeida as out patient . Mr. Barlow is a 57 year old male who presents to ER after attempting suicide. He reportedly took an excessive amount of his Neurontin, Lisinopril, and Xanax in an attempt to end his life. In the ER, patient was administered charcoal and observed for some time. Routine labs were obtained, which were essentially negative. Upon my assessment of the patient, he is alert and oriented 3. He appears in no distress. He admits to TAKING MEDICATIONS TO END HIS LIFE AND PLAN was to but my daughter kicked door in and bought me here, states had seen Dr Almeida few weeks ago , but his stressor both family and financial lead to his attempt. He states his left him and, when he returned to his home , he noticed that his moved out and took all the furniture and belongings with her. he drank some beers before he took the pills , he denies any other street drug . He feels hopeless, worthless and unable to sign for safety , at present he is danger to self. A/p Major depressive disorder severe recurrent. suicide attempt. Once medically stable need inpatient. continue 1;1 Thank you for consult. CC: Vanessa Ariza CNP Past Med Surg Social Fam HX - Past Medical History Medical history: arthritis, diabetes, hypertension - Past Psychiatric History Psychiatric history: Reports: anxiety, depression, prior suicide attempt, previous psychiatric hospitalization Family psychiatric history: Unknown Family History of Suicide: Unknown - Past Surgical History Surgical History: orthopedic, other - Social History Smoking Status: Never smoker Smokeless Tobacco Status: No Alcohol use: occasionally Drug use: prescription drug abuse - Family History Mother Living Status: Father Living Status: Medications & Allergies Tizanidine HCl 4 mg PO TID 08/24/17 [History] GlipiZIDE XL (24 HR) [Glucotrol XL] 10 mg PO DAILY tab.er.24 08/27/17 [Rx] Quetiapine Fumarate [Seroquel] 50 mg PO HS PRN #60 tablet 08/27/17 [Rx] metFORMIN [Glucophage] 1,000 mg PO BIDWM tablet 08/27/17 [Rx] ALPRAZolam [Xanax 1 MG Tablet] 1 mg PO BID 01/21/18 [History] Albuterol Sulfate [Proair Hfa] 2 puff IH Q4H PRN 01/21/18 [History] Escitalopram [Lexapro] 10 mg PO DAILY 01/21/18 [History] Gabapentin [Neurontin] 800 mg PO TID 01/21/18 [History] Lantus Solostar 01/21/18 [History] Lisinopril [Zestril] 10 mg PO BID 01/21/18 [History] Ranitidine HCl [Zantac] 150 mg PO BID 01/21/18 [History] 3 Allergy/AdvReac Type Severity Reaction Status Date / Time hydrocodone [From Vicodin] AdvReac Nausea Verified 08/19/17 16:51 pregabalin [From Lyrica] AdvReac Agitated Verified 08/19/17 16:51 Review of Systems Psychiatric: Reports: depression, anxiety, abnormal sleep pattern, suicidal ideation, difficulty concentrating, hopelessness, irritability Mental Status Exam Patient orientation: Yes Person, Yes Time, Yes Place Level of alertness: Alert Patient appearance: Appropriate Behavior: withdrawn Psychomotor activity: Normal Eye contact: Maintains Eye Contact Mood description: Depressed, Anxious Affect description: dysphoric Speech pattern: Slowed Speech volume: Normal Thought process: Intact Thought content: Yes Suicidal ideation, Yes Preoccupation Attention span: Capable of Focused Attention Memory description: Grossly Intact Patient reliability: Reliable Historian Intelligence estimate: Average Judgment: Limited Insight: Partial Results - Vital Signs Vital signs: Temp Pulse Resp BP Pulse Ox 98.2 F 91 16 113/71 93 01/22/18 11:04 01/22/18 11:04 01/22/18 11:04 01/22/18 11:04 01/22/18 11:04 - Labs Labs: Laboratory Last Values WBC 6.4 K/mcL (4.3-11.1) 01/22/18 04:54 RBC 4.44 M/mcL (4.19-5.50) 01/22/18 04:54 Hgb 13.0 g/dL (12.9-16.9) 01/22/18 04:54 Hct 39.8 % (37.5-50.1) 01/22/18 04:54 MCV 89.6 fL (83.0-100.0) 01/22/18 04:54 MCH 29.3 pg (28.0-33.3) 01/22/18 04:54 MCHC 32.7 g/dL (31.6-35.5) 01/22/18 04:54 RDW 13.2 % (11.5-14.5) 01/22/18 04:54 Plt Count 266 K/mcL (140-400) 01/22/18 04:54 MPV 9.9 fL (9.4-12.4) 01/22/18 04:54 Immature Gran % 0.3 % (0-4) 01/22/18 04:54 Seg Neutrophils % 36.0 % 01/22/18 04:54 Lymphocytes % 44.3 % 01/22/18 04:54 Monocytes % 11.0 % 01/22/18 04:54 Eosinophils % 7.6 % 01/22/18 04:54 Basophils % 0.8 % 01/22/18 04:54 Neutrophils # 2.3 K/mcL (1.6-8.9) 01/22/18 04:54 Lymphocytes # 2.9 K/mcL (0.6-4.6) 01/22/18 04:54 Monocytes # 0.7 K/mcL (0.0-1.3) 01/22/18 04:54 Eosinophils # 0.5 K/mcL (0.0-0.6) 01/22/18 04:54 Basophils # 0.1 K/mcL (0.0-0.2) 01/22/18 04:54 PT 10.8 Seconds (9.4-12.1) 01/22/18 04:54 INR 1.0 01/22/18 04:54 APTT 30.9 Seconds (26.0-36.0) 01/22/18 04:54 Sodium 137 mEq/L (136-145) 01/22/18 04:54 Potassium 4.3 mEq/L (3.5-5.1) 01/22/18 04:54 Chloride 105 mEq/L (98-107) 01/22/18 04:54 Carbon Dioxide 25 mEq/L (23-29) 01/22/18 04:54 BUN 8 mg/dL (6-20) 01/22/18 04:54 Creatinine 1.08 mg/dL (0.70-1.30) 01/22/18 04:54 Est GFR ( Amer) > 60 (> 60) 01/22/18 04:54 Est GFR (Non-Af Amer) > 60 (> 60) 01/22/18 04:54 BUN/Creatinine Ratio 7 (6-26) 01/22/18 04:54 Glucose 227 mg/dL (70-105) H 01/22/18 04:54 POC Glucose 229 (58-89) H 01/22/18 00:23 Est Mean Plasma Glucose 237 mg/dl 01/22/18 04:54 Hemoglobin A1c 9.9 % (-5.6) H 01/22/18 04:54 Calculated Osmolality 289 (280-300) 01/22/18 04:54 Calcium 8.6 mg/dL (8.6-10.3) 01/22/18 04:54 Magnesium 1.9 mg/dL (1.6-2.6) 01/22/18 04:54 Total Bilirubin 0.3 mg/dL (0.3-1.0) 01/22/18 04:54 AST 15 Units/L (13-39) 01/22/18 04:54 ALT 22 Units/L (7-52) 01/22/18 04:54 Alkaline Phosphatase 91 Units/L (34-104) 01/22/18 04:54 Serum Total Protein 6.4 g/dL (6.4-8.9) 01/22/18 04:54 Albumin 3.9 g/dL (3.5-5.7) 01/22/18 04:54 Globulin 2.5 g/dL (2.4-3.5) 01/22/18 04:54 Albumin/Globulin Ratio 1.6 (1.1-2.2) 01/22/18 04:54 Urine Color Yellow (Yellow) 01/21/18 21:45 Urine Clarity Clear (Clear) 01/21/18 21:45 Urine pH 6.5 pH Units (5.0-8.0) 01/21/18 21:45 Ur Specific [place] 1.010 (1.010-1.025) 01/21/18 21:45 Urine Protein Negative mg/dL (Neg-Trace) 01/21/18 21:45 Urine Glucose (UA) 250 mg/dL (Normal) H 01/21/18 21:45 Urine Ketones Negative mg/dL (Negative) 01/21/18 21:45 Urine Blood Negative (Negative) 01/21/18 21:45 Urine Nitrite Negative (Negative) 01/21/18 21:45 Urine Bilirubin Negative (Negative) 01/21/18 21:45 Urine Urobilinogen Normal mg/dL (Normal) 01/21/18 21:45 Ur Leukocyte Esterase Negative (Negative) 01/21/18 21:45 Salicylates < 5.0 mg/dL (15.0-30.0) L 01/21/18 21:12 Urine Opiates Screen Negative ng/mL (Zozhnt=615) 01/21/18 22:04 Acetaminophen < 1.0 mcg/mL (10-30) L 01/21/18 21:12 Ur Barbiturates Screen Negative ng/mL (Bwbylh=827) 01/21/18 22:04 Ur Phencyclidine Scrn Negative ng/mL (Cutoff=25) 01/21/18 22:04 Ur Amphetamines Screen Negative ng/mL (Relapu=6851) 01/21/18 22:04 U Benzodiazepines Scrn Positive ng/mL (Gkyysr=352) H 01/21/18 22:04 Urine Cocaine Screen Negative ng/mL (Cutoff= 300) 01/21/18 22:04 U Marijuana (THC) Screen Negative ng/mL (Cutoff = 50) 01/21/18 22:04 Ethyl Alcohol 44 mg/dL (0-10) H 01/21/18 21:12 Consult Discharge Plan - Plan Referrals: Nicolas Acosta MD [Primary Care Provider] -
[2018-01-22] MEDS ORDERED: Ketorolac 30 MG/ML VIAL IVP ONE (17:10)
--- NOTE | 2018-01-22 17:10 | Event Note ---
Date of Encounter: 01/22/18 Time of Encounter: 16:57 Assessment and Plan 1. Suicide attempt by drug ingestion: with intentional ingestion of gabapentin, Xanax and lisinopril. UDS positive for benzos. He received activated charcoal and ED. Remains hemodynamically stable, no electrolytes abnormality. Evaluated by psychiatry who noted patient will need inpatient psychiatry admission once medically stable. Cont 24 hour sitter and suicide precautions. Anticipate discharge 01/23/2018 if remains hemodynamically stable without Y abnormalities. 2. Type 2 diabetes mellitus: per hx. Hgb A1c 9.9%. Hold oral home meds. Cont SSI. Monitor blood sugar and titrate PRN 3. DVT prophylaxis: Heparin SQ. 4. Back pain: Appears to be chronic. Patient reports she was on pain medicine but this was stopped due to insurance reasons. We will give one-time dose of Toradol.
[2018-01-22] MEDS ORDERED: ALPRAZolam 1 MG TABLET PO PRN (17:41)
[2018-01-22] MEDS: ALPRAZolam 1 MG TABLET PO SCH ×2 (18:35)
[2018-01-23 04:38] LABS: Hematocrit 36.7 % (37.5-50.1); Hemoglobin 11.9 g/dL (12.9-16.9); Mean Corpuscular HGB Conc 32.4 g/dL (31.6-35.5); Mean Corpuscular Hemoglobin 29.8 pg (28.0-33.3); Mean Platelet Volume 10.1 fL (9.4-12.4); Platelet Count 267 K/mcL (140-400); Red Blood Count 3.99 M/mcL (4.19-5.50); Red Cell Distribution Width 13.1 % (11.5-14.5)
[2018-01-23 04:58] LABS: BUN/Creatinine Ratio 13 (6-26); Blood Urea Nitrogen 16 mg/dL (6-20); Carbon Dioxide 25 mEq/L (23-29); Chloride 106 mEq/L (98-107); Glucose 268 mg/dL (70-105); Osmolality,Calculated 295 (280-300); Potassium 4.2 mEq/L (3.5-5.1); Sodium 137 mEq/L (136-145); eGFR For African Americans > 60 (> 60); eGFR For Non-African Americans 58 (> 60)
[2018-01-23] MEDS: 0.9 % Sodium Chloride 1,000 ML IVC SCH (05:27)
[2018-01-23] MEDS: *HR* Heparin 5,000 UNIT/ML VIAL SQ SCH ×3 (05:28→20:33)
[2018-01-23] MEDS: Famotidine 20 MG TABLET PO SCH ×3 (05:31→16:17)
[2018-01-23] MEDS ORDERED: Ondansetron 4 MG/2 ML VIAL IVP PRN (07:23)
[2018-01-23] MEDS: Insulin LISPRO 300 UNITS/3 ML VIAL SQ SCH ×3 (08:18→17:30)
[2018-01-23] MEDS: ALPRAZolam 1 MG TABLET PO SCH (08:19)
[2018-01-23] MEDS: Acetaminophen 325 MG TABLET PO PRN (08:40)
--- NOTE | 2018-01-23 12:06 | Internal Med Progress Note ---
Date of Encounter: 01/23/18 Time of Encounter: 12:03 - Assessment and plan (1) Suicide attempt by drug ingestion Current Visit: Yes Status: Acute Assessment and plan: with intentional ingestion of gabapentin, Xanax and lisinopril. UDS positive for benzos. He received activated charcoal and ED. Remains hemodynamically stable, no electrolytes abnormality. Evaluated by psychiatry who noted patient is still suicidal and not safe for discharge; will need inpatient psychiatry admission once medically stable. Cont 24 hour sitter and suicide precautions Qualifiers: Encounter type: initial encounter Qualified Code(s): T50.902A - Poisoning by unspecified drugs, medicaments and biological substances, intentional self- harm, initial encounter (2) Depression Current Visit: No Status: Acute Assessment and plan: per hx. On lexapro at home. Now with suicide attempt as noted above. Discussed with psychiatry on 01/23/18 and stop home Xanax, start Restoril, resume home gabapentin at lower dose and resume home Lexapro. Plan to transfer to once medically stable. Qualifiers: Depression Type: major depressive disorder Major depression recurrence: recurrent Active/Remission status: currently active Major depression episode severity: severe Psychotic features: without psychotic features Qualified Code(s): F33.2 - Major depressive disorder, recurrent severe without psychotic features (3) Abdominal pain Current Visit: Yes Status: Acute Assessment and plan: reports acute right lower quadrant abdominal pain on 01/[address] 2017 mild mural thickness of transverse and left colon. Tender with palpation on exam. No loose stool or constipation, no nausea or vomiting. KUB pending Qualifiers: Abdominal location: right lower quadrant Qualified Code(s): R10.31 - Right lower quadrant pain (4) Type 2 diabetes mellitus Current Visit: Yes Status: Chronic Assessment and plan: per hx. Uncontrolled. hgb A1c 9.9%; per home medication list patient was not taking long-acting insulin. Holding oral hypoglycemics. Start low-dose long- acting insulin. SSI. Monitor blood sugars and titrate PRN Qualifiers: Diabetes mellitus terminal computer operator insulin use: with terminal computer operator use Diabetes mellitus complication status: without complication Qualified Code(s): E11.9 - Type 2 diabetes mellitus without complications; Z79.4 - terminal computer operator (current) use of insulin; Z79.4 - assisted (current) use of insulin; Z79.4 - assisted ( current) use of insulin; Z79.4 - assisted (current) use of insulin (5) DVT prophylaxis Current Visit: Yes Status: Acute Assessment and plan: heparin - Subjective Interval history: Seen and examined at bedside, he is complaining of right lower quadrant pain which started this morning. He is quite tender on exam. No nausea, vomiting, constipation or diarrhea. He still feels sad and depressed. No active suicidal ideation. - Constitutional Vitals: Temp Pulse Resp BP Pulse Ox 98 F 79 16 112/64 96 01/23/18 11:28 01/23/18 11:28 01/23/18 11:28 01/23/18 11:28 01/23/18 11:28 General appearance: Present: cooperative, A&O X 3, morbidly obese, pleasant - Head Head exam: Present: atraumatic, normocephalic - Eye Eye exam: Present: PERRL, conjuntiva pink, sclera anicteric Pupils: Present: PERRL - Neck Neck exam general surgery: Present: supple, trachea midline. Absent: lymphadenopathy - Respiratory Respiratory exam: Present: CTAB. Absent: accessory muscle use, rales, rhonchi, wheezes - Cardiovascular Cardiovascular exam: Present: RRR, +S1, +S2. Absent: diastolic murmur, gallop, rubs, systolic murmur - GI/Abdominal GI/Abdominal exam: Present: normal bowel sounds, soft, tenderness, no peritoneal signs. Absent: distended - Extremities Exam Extremities exam: Present: warm, radial pulses palpable and symmetrical. Absent : calf tenderness, cyanotic, pedal edema - Neurological Exam Neurological exam: Present: CN II-XII intact, oriented X3, no focal deficits. Absent: pronater drift, facial droop, speech deficit - Skin Skin exam: Present: dry, intact Internal Medicine: Result - Labs CBC & Chem 7: 01/23/18 03:42 01/23/18 03:42 Labs: Short CBC 01/23/18 Range/Units 03:42 WBC 7.4 (4.3-11.1) K/mcL Hgb 11.9 L (12.9-16.9) g/dL Hct 36.7 L (37.5-50.1) % Plt Count 267 (140-400) K/mcL BMP 01/23/18 03:42 Sodium 137 Potassium 4.2 Chloride 106 Carbon Dioxide 25 BUN 16 Creatinine 1.28 Glucose 268 H Calcium 8.0 L - ABG Interpretation ABG results: PT/INR, D-dimer PT 10.8 Seconds (9.4-12.1) 01/22/18 04:54 Consult Discharge Plan - Plan Referrals: Nicolas Acosta MD [Primary Care Provider] -
--- NOTE | 2018-01-23 12:31 | Electrocardiograph Report ---
[address] [address] Test Date: 2018-01-21 Pat Name: Heriberto Barlow Department: 104 Room: 3B Gender: M Floor Grinder: DEBO : 1960 Requested By: Rodrigo Campbell Order Number: [id number] Reading MD: Ayaz Campos Measurements Intervals [place] Rate: 101 P: 54 NH: 140 QRS: 53 QRSD: 90 T: 15 QT: 334 QTc: 392 Interpretive Statements SINUS TACHYCARDIA ABNORMAL RHYTHM ECG Electronically Signed On 01-23-2018 12:29:52 EST by Ayaz Campos
--- NOTE | 2018-01-23 12:33 | Electrocardiograph Report ---
[place] [address] Test Date: 2018-01-22 Pat Name: Heriberto Barlow Department: 113 Room: [facility] Gender: M Procurement Intern: : 1960 Requested By: Patricio Estes Order Number: [id number] Reading MD: Ayaz Campos Measurements Intervals [place] Rate: 90 P: 67 NM: 135 QRS: 59 QRSD: 96 T: 50 QT: 356 QTc: 404 Interpretive Statements SINUS RHYTHM Electronically Signed On 01-23-2018 12:32:03 EST by Ayaz Campos
[2018-01-23] MEDS ORDERED: traMADol 50 MG TABLET PO ONE (13:23)
[2018-01-23] MEDS ORDERED: tiZANidine 4 MG TABLET PO SCH (15:00)
[2018-01-23] MEDS ORDERED: NON-FORMULARY MEDICATION 1 EACH EACH (Gabapentin [Neurontin] 800 MG) PO SCH (15:00)
[2018-01-23] MEDS: Gabapentin 300 MG CAPSULE PO SCH ×2 (16:17→20:33)
[2018-01-23] MEDS: hydrOXYzine pamoate 25 MG CAPSULE PO SCH ×2 (16:17→20:32)
[2018-01-23] MEDS: Insulin DETEMIR 100 UNIT/ML X5UNITS SQ SCH (20:33)
[2018-01-24] MEDS: *HR* Heparin 5,000 UNIT/ML VIAL SQ SCH ×3 (06:22→21:25)
[2018-01-24] MEDS: Gabapentin 300 MG CAPSULE PO SCH ×3 (08:08→21:27)
[2018-01-24] MEDS: hydrOXYzine pamoate 25 MG CAPSULE PO SCH ×3 (08:10→21:26)
[2018-01-24] MEDS: Insulin LISPRO 300 UNITS/3 ML VIAL SQ SCH ×3 (08:11→16:38)
--- NOTE | 2018-01-24 16:36 | Internal Med Progress Note ---
Date of Encounter: 01/24/18 Time of Encounter: 16:33 - Assessment and plan (1) Suicide attempt by drug ingestion Current Visit: Yes Status: Acute Assessment and plan: with intentional ingestion of gabapentin, Xanax and lisinopril. UDS positive for benzos. He received activated charcoal and ED. Remains hemodynamically stable, no electrolytes abnormality. Evaluated by psychiatry who noted patient is still suicidal and not safe for discharge; will need inpatient psychiatry admission once medically stable. Cont 24 hour sitter and suicide precautions. Patient is pink slipped and may not leave AGAINST MEDICAL ADVICE Qualifiers: Encounter type: initial encounter Qualified Code(s): T50.902A - Poisoning by unspecified drugs, medicaments and biological substances, intentional self- harm, initial encounter (2) Depression Current Visit: No Status: Acute Assessment and plan: per hx. On lexapro at home. Now with suicide attempt as noted above. Discussed with psychiatry on 01/23/18 and stop home Xanax, start Restoril, resume home gabapentin at lower dose and resume home Lexapro. Plan to transfer to once medically stable. Qualifiers: Depression Type: major depressive disorder Major depression recurrence: recurrent Active/Remission status: currently active Major depression episode severity: severe Psychotic features: without psychotic features Qualified Code(s): F33.2 - Major depressive disorder, recurrent severe without psychotic features (3) Abdominal pain Current Visit: Yes Status: Acute Assessment and plan: reports acute right lower quadrant abdominal pain on 01/[address] 2017 mild mural thickness of transverse and left colon. Tender with palpation on exam. No loose stool or constipation, no nausea or vomiting. KUB unremarkable. No further workup indicated at this time. Recommend outpatient GI follow-up; would likely benefit from colonoscopy. Qualifiers: Abdominal location: right lower quadrant Qualified Code(s): R10.31 - Right lower quadrant pain (4) Type 2 diabetes mellitus Current Visit: Yes Status: Chronic Assessment and plan: per hx. Uncontrolled. hgb A1c 9.9%; per home medication list patient was not taking long-acting insulin. Holding oral hypoglycemics. Start low-dose long- acting insulin. SSI. Monitor blood sugars and titrate PRN. Blood sugars improved on 01/24 review Qualifiers: Diabetes mellitus penitentiary insulin use: with penitentiary use Diabetes mellitus complication status: without complication Qualified Code(s): E11.9 - Type 2 diabetes mellitus without complications; Z79.4 - care home (current) use of insulin; Z79.4 - termination clerk (current) use of insulin; Z79.4 - care home ( current) use of insulin; Z79.4 - termination clerk (current) use of insulin (5) DVT prophylaxis Current Visit: Yes Status: Acute Assessment and plan: heparin - Subjective Interval history: Seen and examined at bedside; says he feels better today. Has intermittent right lower quadrant pain but overall improved. Says he feels sad and depressed but no suicidal ideation. He is aware plan to transfer to inpatient psych once bed is available. - Constitutional Vitals: Temp Pulse Resp BP Pulse Ox 98.2 F 77 16 137/75 94 01/24/18 15:59 01/24/18 15:59 01/24/18 15:59 01/24/18 15:59 01/24/18 15:59 General appearance: Present: cooperative, A&O X 3, morbidly obese, pleasant - Head Head exam: Present: atraumatic, normocephalic - Eye Eye exam: Present: PERRL, conjuntiva pink, sclera anicteric Pupils: Present: PERRL - Neck Neck exam general surgery: Present: supple, trachea midline. Absent: lymphadenopathy - Respiratory Respiratory exam: Present: CTAB. Absent: accessory muscle use, rales, rhonchi, wheezes - Cardiovascular Cardiovascular exam: Present: RRR, +S1, +S2. Absent: diastolic murmur, gallop, rubs, systolic murmur - GI/Abdominal GI/Abdominal exam: Present: normal bowel sounds, soft, no peritoneal signs. Absent: distended, tenderness - Extremities Exam Extremities exam: Present: warm, radial pulses palpable and symmetrical. Absent : calf tenderness, cyanotic, pedal edema - Neurological Exam Neurological exam: Present: CN II-XII intact, oriented X3, no focal deficits. Absent: pronater drift, facial droop, speech deficit - Skin Skin exam: Present: dry, intact Internal Medicine: Result - Labs CBC & Chem 7: 01/23/18 03:42 01/23/18 03:42 - ABG Interpretation ABG results: PT/INR, D-dimer PT 10.8 Seconds (9.4-12.1) 01/22/18 04:54 - Impressions Impressions KUB X-Ray 01/23/18 12:28 IMPRESSION: Nonspecific bowel gas pattern. D/ / Heriberto Clancy MD / Heriberto Clancy MD Interpreting Provider: Heriberto Clancy MD Consult Discharge Plan - Plan Referrals: Nicolas Acosta MD [Primary Care Provider] -
[2018-01-24] MEDS: Famotidine 20 MG TABLET PO SCH (16:54)
[2018-01-24] MEDS: Insulin DETEMIR 100 UNIT/ML X5UNITS SQ SCH (21:26)
[2018-01-25 05:09] LABS: Hematocrit 41.4 % (37.5-50.1); Hemoglobin 13.4 g/dL (12.9-16.9); Mean Corpuscular HGB Conc 32.4 g/dL (31.6-35.5); Mean Corpuscular Hemoglobin 29.3 pg (28.0-33.3); Mean Corpuscular Volume 90.4 fL (83.0-100.0); Mean Platelet Volume 10.5 fL (9.4-12.4); Platelet Count 353 K/mcL (140-400); Red Blood Count 4.58 M/mcL (4.19-5.50)
[2018-01-25] MEDS: *HR* Heparin 5,000 UNIT/ML VIAL SQ SCH ×3 (05:16→21:04)
[2018-01-25] MEDS: hydrOXYzine pamoate 25 MG CAPSULE PO SCH ×3 (08:30→21:03)
[2018-01-25] MEDS: Insulin LISPRO 300 UNITS/3 ML VIAL SQ SCH ×3 (08:31→18:12)
[2018-01-25] MEDS: Famotidine 20 MG TABLET PO SCH ×2 (08:31→18:11)
[2018-01-25] MEDS: Gabapentin 300 MG CAPSULE PO SCH ×3 (08:31→21:03)
--- NOTE | 2018-01-25 13:59 | Internal Med Progress Note ---
Date of Encounter: 01/25/18 Time of Encounter: 13:57 - Assessment and plan (1) Suicide attempt by drug ingestion Current Visit: Yes Status: Acute Assessment and plan: with intentional ingestion of gabapentin, Xanax and lisinopril. UDS positive for benzos. He received activated charcoal and ED. Remains hemodynamically stable, no electrolytes abnormality. Evaluated by psychiatry who noted patient is still suicidal and not safe for discharge; will need inpatient psychiatry admission once medically stable. Cont 24 hour sitter and suicide precautions. Patient is pink slipped and may not leave AGAINST MEDICAL ADVICE Qualifiers: Encounter type: initial encounter Qualified Code(s): T50.902A - Poisoning by unspecified drugs, medicaments and biological substances, intentional self- harm, initial encounter (2) Depression Current Visit: No Status: Acute Assessment and plan: per hx. On lexapro at home. Now with suicide attempt as noted above. Discussed with psychiatry on 01/23/18 and stop home Xanax, start Restoril, resume home gabapentin at lower dose and resume home Lexapro. Plan to transfer to once medically stable. Qualifiers: Depression Type: major depressive disorder Major depression recurrence: recurrent Active/Remission status: currently active Major depression episode severity: severe Psychotic features: without psychotic features Qualified Code(s): F33.2 - Major depressive disorder, recurrent severe without psychotic features (3) Abdominal pain Current Visit: Yes Status: Acute Assessment and plan: reports acute right lower quadrant abdominal pain on 01/[address] 2017 mild mural thickness of transverse and left colon. Tender with palpation on exam. No loose stool or constipation, no nausea or vomiting. KUB unremarkable. No further workup indicated at this time. Declined inpatient RUQ US as he would need to be nothing by mouth for 8 hours. Recommend outpatient GI follow-up; would likely benefit from colonoscopy. Qualifiers: Abdominal location: right lower quadrant Qualified Code(s): R10.31 - Right lower quadrant pain (4) Type 2 diabetes mellitus Current Visit: Yes Status: Chronic Assessment and plan: per hx. Uncontrolled. hgb A1c 9.9%; per home medication list patient was not taking long-acting insulin. Holding oral hypoglycemics. Start low-dose long- acting insulin. SSI. Monitor blood sugars and titrate PRN. Blood sugars improved on 01/24 review Qualifiers: Diabetes mellitus long term care administrator insulin use: with care home use Diabetes mellitus complication status: without complication Qualified Code(s): E11.9 - Type 2 diabetes mellitus without complications; Z79.4 - long term care pharmacist (current) use of insulin; Z79.4 - long term care pharmacist (current) use of insulin; Z79.4 - long term care pharmacist ( current) use of insulin; Z79.4 - care home (current) use of insulin (5) DVT prophylaxis Current Visit: Yes Status: Acute Assessment and plan: heparin - Subjective Interval history: Seen and examined at bedside; says he feels better today. Still with intermittent abdominal pain but overall improved. He initially was agreeable to right upper quadrant ultrasound however declined after he found out he have to be nothing by mouth for 8 hours. Hospitalization prolonged due to awaiting open bed on inpatient psych unit. Denies SI/HI at this time. - Constitutional Vitals: Temp Pulse Resp BP Pulse Ox 98.1 F 85 16 148/68 95 01/25/18 10:39 01/25/18 10:39 01/25/18 10:39 01/25/18 10:39 01/25/18 10:39 General appearance: Present: cooperative, A&O X 3, morbidly obese, pleasant - Head Head exam: Present: atraumatic, normocephalic - Eye Eye exam: Present: PERRL, conjuntiva pink, sclera anicteric Pupils: Present: PERRL - Neck Neck exam general surgery: Present: supple, trachea midline. Absent: lymphadenopathy - Respiratory Respiratory exam: Present: CTAB. Absent: accessory muscle use, rales, rhonchi, wheezes - Cardiovascular Cardiovascular exam: Present: RRR, +S1, +S2. Absent: diastolic murmur, gallop, rubs, systolic murmur - GI/Abdominal GI/Abdominal exam: Present: normal bowel sounds, soft, no peritoneal signs. Absent: distended, tenderness - Extremities Exam Extremities exam: Present: warm, radial pulses palpable and symmetrical. Absent : calf tenderness, cyanotic, pedal edema - Neurological Exam Neurological exam: Present: CN II-XII intact, oriented X3, no focal deficits. Absent: pronater drift, facial droop, speech deficit - Skin Skin exam: Present: dry, intact Internal Medicine: Result - Labs CBC & Chem 7: 01/25/18 04:30 01/23/18 03:42 Labs: Short CBC 01/25/18 Range/Units 04:30 WBC 9.8 (4.3-11.1) K/mcL Hgb 13.4 D (12.9-16.9) g/dL Hct 41.4 (37.5-50.1) % Plt Count 353 (140-400) K/mcL - ABG Interpretation ABG results: PT/INR, D-dimer PT 10.8 Seconds (9.4-12.1) 01/22/18 04:54 Consult Discharge Plan - Plan Referrals: Nicolas Acosta MD [Primary Care Provider] -
[2018-01-25] MEDS ORDERED: Insulin LISPRO 300 UNITS/3 ML VIAL SQ SCH (21:00)
[2018-01-25] MEDS: Insulin DETEMIR 100 UNIT/ML X5UNITS SQ SCH (21:04)
[2018-01-26] MEDS: *HR* Heparin 5,000 UNIT/ML VIAL SQ SCH (06:29)
[2018-01-26] MEDS: Famotidine 20 MG TABLET PO SCH (06:29)
[2018-01-26] MEDS: Gabapentin 300 MG CAPSULE PO SCH (10:12)
[2018-01-26] MEDS: hydrOXYzine pamoate 25 MG CAPSULE PO SCH (10:12)
[2018-01-26] MEDS: Insulin LISPRO 300 UNITS/3 ML VIAL SQ SCH ×2 (10:13→12:36)
[2018-01-26 11:31] VITALS: BP 126/75
--- NOTE | 2018-01-26 13:25 | Discharge Summary ---
Date of Encounter: 01/26/18 Time of Encounter: 13:19 - Discharge Diagnosis (1) Suicide attempt by drug ingestion Priority: Primary Status: Acute Comments: with intentional ingestion of gabapentin, Xanax and lisinopril. UDS positive for benzos. He received activated charcoal and ED. Remained hemodynamically stable, no electrolyte abnormality. Evaluated by psychiatry who noted patient is still suicidal and not safe for discharge; will need inpatient psychiatry admission once medically stable. He was managed with 24-hour sitter and suicide precautions. Discharged to 1 A once bed available. Patient is pink slipped and may not leave AGAINST MEDICAL ADVICE Qualifiers: Encounter type: initial encounter Qualified Code(s): T50.902A - Poisoning by unspecified drugs, medicaments and biological substances, intentional self- harm, initial encounter (2) Depression Priority: Primary Status: Acute Comments: per hx. On lexapro at home. Now with suicide attempt as noted above. Discussed with psychiatry on 01/23/18 and stop home Xanax, start Restoril, resume home gabapentin at lower dose and resume home Lexapro. Plan to transfer to once medically stable. Qualifiers: Depression Type: major depressive disorder Major depression recurrence: recurrent Active/Remission status: currently active Major depression episode severity: severe Psychotic features: without psychotic features Qualified Code(s): F33.2 - Major depressive disorder, recurrent severe without psychotic features (3) Abdominal pain Priority: Primary Status: Acute Comments: reports acute right lower quadrant abdominal pain on 01/[address] 2017 mild mural thickness of transverse and left colon. Tender with palpation on exam. No loose stool or constipation, no nausea or vomiting. KUB unremarkable. No further workup indicated at this time. Recommend outpatient GI follow-up; would likely benefit from colonoscopy. Qualifiers: Abdominal location: right lower quadrant Qualified Code(s): R10.31 - Right lower quadrant pain (4) Type 2 diabetes mellitus Priority: Secondary Status: Chronic Comments: per hx. Uncontrolled. hgb A1c 9.9%; per home medication list patient was not taking long-acting insulin. Resume home oral hypoglycemics Qualifiers: Diabetes mellitus termite control technician insulin use: with termite control technician use Diabetes mellitus complication status: without complication Qualified Code(s): E11.9 - Type 2 diabetes mellitus without complications; Z79.4 - keno terminal operator (current) use of insulin; Z79.4 - [facility] (current) use of insulin; Z79.4 - keno terminal operator ( current) use of insulin; Z79.4 - keno terminal operator (current) use of insulin Hospital course: Mr. Barlow is a 57 year old male with past medical history diabetes and depression who presented to [facility] on 01/[facility]2017 after intentional ingestion of lisinopril, Xanax and gabapentin and in suicide attempt. He was admitted for further workup and treatment. He was evaluated by psychiatry who recommended inpatient psychiatric admission once medically stable. He received activated charcoal in ED, remained hemodynamically stable, no electrolyte abnormalities. He was medically stabilized and transferred to unit 1A. Please see assessment and plan for further details. Discharge discussed with: patient - Time Spent with Patient Total time spent providing and/or coordinating discharge services: Less than 30 minutes - Discharge Medications Home Medications: Tizanidine HCl 4 mg PO TID 08/24/17 [History] GlipiZIDE XL (24 HR) [Glucotrol XL] 10 mg PO DAILY tab.er.24 08/27/17 [Rx] Quetiapine Fumarate [Seroquel] 50 mg PO HS PRN #60 tablet 08/27/17 [Rx] metFORMIN [Glucophage] 1,000 mg PO BIDWM tablet 08/27/17 [Rx] Albuterol Sulfate [Proair Hfa] 2 puff IH Q4H PRN 01/21/18 [History] Escitalopram [Lexapro] 10 mg PO DAILY 01/21/18 [History] Lantus Solostar 01/21/18 [History] Lisinopril [Zestril] 10 mg PO BID 01/21/18 [History] Ranitidine HCl [Zantac] 150 mg PO BID 01/21/18 [History] Gabapentin [Neurontin] 300 mg PO TID 30 Days #90 capsule 01/26/18 [Rx] Quetiapine Fumarate [Seroquel] 50 mg PO HS PRN tablet 01/26/18 [Rx] hydrOXYzine pamoate [HydrOXYzine Pamoate] 25 mg PO TID capsule 01/26/18 [Rx] Allergies/Adverse Reactions: 3 Allergy/AdvReac Type Severity Reaction Status Date / Time hydrocodone [From Vicodin] AdvReac Nausea Verified 08/19/17 16:51 pregabalin [From Lyrica] AdvReac Agitated Verified 08/19/17 16:51 Date of admission: 01/24/18 16:31 Primary care physician: Nicolas Acosta MD Discharging clinician: Vanessa Ariza Anticipated date of discharge: 01/26/18 - Constitutional Vitals: Temp Pulse Resp BP Pulse Ox 98.2 F 66 20 126/75 97 01/26/18 11:25 01/26/18 11:25 01/26/18 11:25 01/26/18 11:25 01/26/18 11:25 General appearance: Present: cooperative, A&O X 3, morbidly obese, pleasant - Head Head exam: Present: atraumatic, normocephalic - Eye Eye exam: Present: PERRL, conjuntiva pink, sclera anicteric Pupils: Present: PERRL - Neck Neck exam general surgery: Present: supple, trachea midline. Absent: lymphadenopathy - Respiratory Respiratory exam: Present: CTAB. Absent: accessory muscle use, rales, rhonchi, wheezes - Cardiovascular Cardiovascular exam: Present: RRR, +S1, +S2. Absent: diastolic murmur, gallop, rubs, systolic murmur - GI/Abdominal GI/Abdominal exam: Present: normal bowel sounds, soft, no peritoneal signs. Absent: distended, tenderness - Extremities Exam Extremities exam: Present: warm, radial pulses palpable and symmetrical. Absent : calf tenderness, cyanotic, pedal edema - Neurological Exam Neurological exam: Present: CN II-XII intact, oriented X3, no focal deficits. Absent: pronater drift, facial droop, speech deficit - Skin Skin exam: Present: dry, intact - Patient Status Disposition: Transfer Psychiatric Hosp Condition: Good Functional capacity at discharge: independent ambulation Overall status at discharge: patient is back to baseline - Discharge Instructions Follow Up With: Nicolas Acosta MD [Primary Care Provider] - - Diet and Activity Activity: increase activity as tolerated Diet: diabetic diet
== END 2018-01-26 15:39 | DRG 918 ==
LOC: EMEROO 20:41 → 3BNU 20:41
PROVIDERS: ADMIT Pediatrics; ATTEND Registered Nurse

== ENCOUNTER 2018-01-26 15:15 | Inpatient (IN) ==
[2018-01-26] MEDS ORDERED: hydrOXYzine pamoate 25 MG CAPSULE PO PRN (16:06)
[2018-01-26] MEDS ORDERED: Acetaminophen 325 MG TABLET PO PRN (16:06)
[2018-01-26] MEDS ORDERED: Mag Hydrox/Al Hydrox/Simeth 30 ML UDC PO PRN (16:06)
[2018-01-26] MEDS ORDERED: *HR* LORazepam 2 MG/ML VIAL IM PRN (16:06)
[2018-01-26] MEDS ORDERED: MOM Conc 10 ML UD.LIQ PO PRN (16:06)
[2018-01-26] MEDS ORDERED: Haloperidol Lactate 5 MG/ML VIAL IM PRN (16:06)
[2018-01-26] MEDS ORDERED: *HR* LORazepam 1 MG TABLET PO PRN (16:06)
[2018-01-26] MEDS: *HR* Metformin 500 MG TABLET PO SCH (17:00)
[2018-01-26] MEDS ORDERED: Dextrose Gel 15 GM/37.5 ML TUBE PO PRN ×2 (18:47)
[2018-01-26] MEDS: tiZANidine 4 MG TABLET PO SCH (20:26)
[2018-01-26] MEDS: Gabapentin 300 MG CAPSULE PO SCH (20:26)
[2018-01-26] MEDS: Famotidine 20 MG TABLET PO SCH (20:26)
[2018-01-26] MEDS: Insulin DETEMIR 100 UNIT/ML X5UNITS SQ SCH (21:21)
[2018-01-27] MEDS: *HR* Metformin 500 MG TABLET PO SCH ×2 (08:14→16:30)
[2018-01-27] MEDS: Famotidine 20 MG TABLET PO SCH ×2 (08:38→20:34)
[2018-01-27] MEDS: *HR* GlipiZIDE XL (24 HR) 10 MG TABLET PO SCH (08:38)
[2018-01-27] MEDS: Gabapentin 300 MG CAPSULE PO SCH ×3 (08:38→20:34)
[2018-01-27] MEDS: tiZANidine 4 MG TABLET PO SCH ×3 (08:39→20:34)
--- NOTE | 2018-01-27 10:23 | Psychiatry History & Physical ---
Date of Encounter: 01/27/18 Time of Encounter: 10:18 History of Present Illness Patient Stated Chief Complaint: Overdose on meds Medicare Admission Attestation: For traditional Medicare patients the provided hospital inpatient services are reasonable and necessary and in the case of services not specified as inpatient -only under 42 CFR 419.22 (n), that they are appropriately provided as inpatient services in accordance 42 CFR 412.3. For Critical Access Hospital the patient may reasonably be expected to be discharged or transferred to a hospital within 96 hours after admission to the Critical Access Hospital. Admitted From: Intrahospital Transfer (3A) History of Present Illness: Mr. Barlow is a 57 year old male admitted from the medical floor after stabilization for an overdose on medication in a suicide attempt. Psychiatric consultation and other reports were reviewed. Patient attempted suicide by overdose on multiple medication including Neurontin and Xanax, due to family stress and financial issues. For details please see H&P and consult. 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 He is followed as outpatient in the counseling center and scheduled for follow-up appointments. No previous suicide attempt or hospitalization. Patient currently denies any problem with sleep or appetite, she is maintaining his diabetic control and on medication. Past Med Surg Social Fam HX - Past Medical History Medical history: arthritis, diabetes, hypertension - Past Psychiatric History Psychiatric history: Reports: anxiety, depression. Denies: prior suicide attempt Past psychiatric history details: Outpatient treatment for depression and anxiety at the counseling center for the past 6 months. Family psychiatric history: Unknown Family History of Suicide: Unknown - Past Surgical History Surgical History: orthopedic, other - Social History Smoking Status: Never smoker Smokeless Tobacco Status: No Alcohol use: occasionally Drug use: prescription drug abuse - Family History Mother Living Status: Father Living Status: Medications & Allergies Tizanidine HCl 4 mg PO TID 08/24/17 [History] GlipiZIDE XL (24 HR) [Glucotrol XL] 10 mg PO DAILY tab.er.24 08/27/17 [Rx] metFORMIN [Glucophage] 1,000 mg PO BIDWM tablet 08/27/17 [Rx] Albuterol Sulfate [Proair Hfa] 2 puff IH Q4H PRN 01/21/18 [History] Escitalopram [Lexapro] 10 mg PO DAILY 01/21/18 [History] Lantus Solostar 01/21/18 [History] Lisinopril [Zestril] 10 mg PO BID 01/21/18 [History] Ranitidine HCl [Zantac] 150 mg PO BID 01/21/18 [History] Gabapentin [Neurontin] 300 mg PO TID 30 Days #90 capsule 01/26/18 [Rx] Quetiapine Fumarate [Seroquel] 50 mg PO HS PRN tablet 01/26/18 [Rx] hydrOXYzine pamoate [HydrOXYzine Pamoate] 25 mg PO TID capsule 01/26/18 [Rx] 3 Allergy/AdvReac Type Severity Reaction Status Date / Time hydrocodone [From Vicodin] AdvReac Nausea Verified 08/19/17 16:51 pregabalin [From Lyrica] AdvReac Agitated Verified 08/19/17 16:51 Review of Systems Psychiatric: Reports: depression, suicidal ideation, hopelessness Exam - HEENT Head exam IM: Present: atraumatic Eye exam IM: Present: EOMI, normal appearance, PERRL ENT exam IM: Present: normal exam - Neurological Neurological exam: Present: CN II-XII intact, alert - Respiratory Respiratory exam IM: Present: CTAB - GI/Abdominal GI/Abdominal exam IM: Present: normal bowel sounds, soft. Absent: tenderness - Extremities Extremities exam IM: Present: full ROM - Skin Skin exam IM: Present: dry, warm - Constitutional Vitals: Temp Pulse Resp BP 97.6 F 84 18 111/73 01/27/18 09:00 01/27/18 09:00 01/27/18 09:00 01/27/18 09:00 General appearance: age & developmentally appropriate, well-groomed, well- nourished - Musculoskeletal Gait: normal Station: relaxed Strength & Tone: normal for patient - Psychiatric Patient Orientation: Yes Person, Yes Time, Yes Place Level of alertness: Alert Behavior: calm, cooperative Psychomotor activity: Slowed Eye Contact: Maintains Eye Contact Mood Description: Depressed Affect description: congruent with mood, constricted Speech Volume: Normal Speech pattern: normal rate, normal rhythm, normal tone, fluent, spontaneous Language & Vocabulary: consistent with education Thought Process: Linear, Goal Oriented Thought Content: No Suicidal ideation, No Homicidal ideation, No Overt delusions Perceptual Disturbances: No Auditory hallucinations, No Visual hallucinations Attention Span Ability: Capable of Focused Attention Memory Description: Grossly Intact Patient Reliability: Reliable Historian Fund of knowledge: Yes abstraction ability, Yes average, Yes aware of current events Intelligence Estimate: Average Judgment: Limited Insight: Partial Results - Drug Levels and Toxicology Drug Levels and Toxicology: Drug Levels and Toxicity 01/26/18 01/26/18 01/27/18 16:58 20:25 08:02 POC Glucose 196 H 189 H 107 H - Labs Labs: Laboratory Last Values POC Glucose 107 (58-89) H 01/27/18 08:02 Assessment and Plan (1) Depression Current visit: No Status: Acute Plan: Admit inpatient for safety and stabilization, Close observation, Suicide Precautions per unit protocol, Encourage participation in unit milieu, Group Therapy, Monitor sleep, Monitor appetite Risks, benefits, side effects, alternatives discussed w/pt: Yes Patient agreeable to treatment: Yes Estimated Length of Stay (Days): 3 Qualifiers: Depression Type: major depressive disorder Major depression recurrence: recurrent Active/Remission status: currently active Major depression episode severity: severe Psychotic features: without psychotic features Qualified Code(s): F33.2 - Major depressive disorder, recurrent severe without psychotic features
[2018-01-27] MEDS: Venlafaxine XR (24 HR) 75 MG CAP.ER.24H PO SCH (11:57)
[2018-01-27] MEDS: Insulin DETEMIR 100 UNIT/ML X5UNITS SQ SCH (20:36)
[2018-01-28] MEDS: tiZANidine 4 MG TABLET PO SCH ×3 (09:25→20:30)
[2018-01-28] MEDS: Gabapentin 300 MG CAPSULE PO SCH ×3 (09:25→20:31)
[2018-01-28] MEDS: *HR* Metformin 500 MG TABLET PO SCH ×2 (09:26→15:29)
[2018-01-28] MEDS: Famotidine 20 MG TABLET PO SCH ×2 (09:26→20:31)
[2018-01-28] MEDS: *HR* GlipiZIDE XL (24 HR) 10 MG TABLET PO SCH (09:26)
[2018-01-28] MEDS: Venlafaxine XR (24 HR) 75 MG CAP.ER.24H PO SCH (09:26)
--- NOTE | 2018-01-28 13:17 | Psychiatry Progress Note ---
Date of Encounter: 01/28/18 Time of Encounter: 13:15 Subjective Interval history: Patient is seen for follow-up. Case discussed with treatment team. He reports stable sleep and appetite, denied any depressive symptoms or suicidal ideation. His diabetic control is improving. He was encouraged to continue compliance after discharge to maintain his blood sugar and take his medication. political worker completed discharge plans for patient is going to live with his daughter. Outpatient follow-up has been scheduled. Review of Systems Psychiatric: Reports: depression, suicidal ideation, hopelessness Results - Vital Signs Vital Signs: Temp Pulse Resp BP 97.2 F L 90 14 131/78 01/28/18 09:00 01/28/18 09:00 01/28/18 09:00 01/28/18 09:00 - Labs Labs: Laboratory Results - last 24 hr 01/27/18 01/28/18 19:38 08:25 POC Glucose 164 H 85 Assessment and Plan (1) Depression Current visit: No Status: Acute Plan: Continue hospitalization, Close observation, Suicide Precautions per unit protocol, Encourage participation in unit milieu, Group Therapy, Monitor sleep, Monitor appetite Risks, benefits, side effects, alternatives discussed w/pt: Yes Patient agreeable to treatment: Yes Qualifiers: Depression Type: major depressive disorder Major depression recurrence: recurrent Active/Remission status: currently active Major depression episode severity: severe Psychotic features: without psychotic features Qualified Code(s): F33.2 - Major depressive disorder, recurrent severe without psychotic features Consult Discharge Plan - Plan Referrals: [facility] [Outside] - 03/03/18 9:00 am (The above appointment is with Arleen Mcdonald for outpatient psychiatric assessment and medication management services. You have another appointment scheduled with her on 2017 at 3:30pm. Please arrive 10 minutes early to all appointments to complete the check-in process. Please bring your insurance card (or [facility] award letter) and photo ID. If you are unable to keep any scheduled appointment, 24 hour business notice of cancellation is expected. The above appointment(s) reflects first availability. You may contact the office regularly to check for cancellations that may allow you to be seen sooner. ) [facility]02/[facility] 9:00 am (To begin serives, you may walk-in any Thursday morning at 9:00am. New clients are seen in the order of arrival. If you wish to be seen sooner, you may arrive as early as 8: 00am to hold you place in line. Please bring your insurance card and photo ID.) Psychiatry Exam - Constitutional Vitals: Temp Pulse Resp BP 97.2 F L 90 14 131/78 01/28/18 09:00 01/28/18 09:00 01/28/18 09:00 01/28/18 09:00 General appearance: age & developmentally appropriate, well-groomed, well- nourished, obese - Musculoskeletal Gait: normal Station: relaxed Strength & Tone: normal for patient - Psychiatric Patient Orientation: Yes Person, Yes Time, Yes Place Level of alertness: Alert Behavior: calm, cooperative Psychomotor activity: Normal Eye Contact: Maintains Eye Contact Mood Description: Euthymic/stable Affect description: congruent with mood, full range Speech Volume: Normal Speech pattern: normal rate, normal rhythm, normal tone, fluent, spontaneous Language & Vocabulary: consistent with education Thought Process: Linear, Goal Oriented Thought Content: No Suicidal ideation, No Homicidal ideation, No Overt delusions Perceptual Disturbances: No Auditory hallucinations, No Visual hallucinations Attention Span Ability: Capable of Focused Attention Memory Description: Grossly Intact Patient Reliability: Reliable Historian Fund of knowledge: Yes abstraction ability, Yes aware of current events Intelligence Estimate: Average Judgment: Limited Insight: Partial
[2018-01-28] MEDS: Insulin DETEMIR 100 UNIT/ML X5UNITS SQ SCH (22:11)
[2018-01-29] MEDS: Gabapentin 300 MG CAPSULE PO SCH (08:42)
[2018-01-29] MEDS: Famotidine 20 MG TABLET PO SCH (08:42)
[2018-01-29] MEDS: Venlafaxine XR (24 HR) 75 MG CAP.ER.24H PO SCH (08:42)
[2018-01-29] MEDS: tiZANidine 4 MG TABLET PO SCH (08:42)
[2018-01-29] MEDS: *HR* Metformin 500 MG TABLET PO SCH (08:42)
[2018-01-29] MEDS: *HR* GlipiZIDE XL (24 HR) 10 MG TABLET PO SCH (08:43)
[2018-01-29 10:02] VITALS: BP 120/72
--- NOTE | 2018-01-29 12:39 | Discharge Summary ---
Date of Encounter: 01/29/18 Time of Encounter: 12:27 Diagnosis - Discharge Diagnosis (1) Depression Status: Acute Qualifiers: Depression Type: major depressive disorder Major depression recurrence: recurrent Active/Remission status: currently active Major depression episode severity: severe Psychotic features: without psychotic features Qualified Code(s): F33.2 - Major depressive disorder, recurrent severe without psychotic features Medications - Discharge Medications Prescriptions: Insulin DETEMIR [Levemir] 10 unit SQ HS #10 [id number] Venlafaxine XR (24 HR) [Effexor XR] 75 mg PO DAILY #30 cap.er.24h Tizanidine HCl 4 mg PO TID 08/24/17 [History] GlipiZIDE XL (24 HR) [Glucotrol XL] 10 mg PO DAILY tab.er.24 08/27/17 [Rx] metFORMIN [Glucophage] 1,000 mg PO BIDWM tablet 08/27/17 [Rx] Albuterol Sulfate [Proair Hfa] 2 puff IH Q4H PRN 01/21/18 [History] Escitalopram [Lexapro] 10 mg PO DAILY 01/21/18 [History] Lantus Solostar 01/21/18 [History] Lisinopril [Zestril] 10 mg PO BID 01/21/18 [History] Ranitidine HCl [Zantac] 150 mg PO BID 01/21/18 [History] Gabapentin [Neurontin] 300 mg PO TID 30 Days #90 capsule 01/26/18 [Rx] Quetiapine Fumarate [Seroquel] 50 mg PO HS PRN tablet 01/26/18 [Rx] hydrOXYzine pamoate [HydrOXYzine Pamoate] 25 mg PO TID capsule 01/26/18 [Rx] Insulin DETEMIR [Levemir] 10 unit SQ HS #10 [id number] 01/29/18 [Rx] Venlafaxine XR (24 HR) [Effexor XR] 75 mg PO DAILY #30 cap.er.24h 01/29/18 [Rx] 3 Allergy/AdvReac Type Severity Reaction Status Date / Time hydrocodone [From Vicodin] AdvReac Nausea Verified 08/19/17 16:51 pregabalin [From Lyrica] AdvReac Agitated Verified 08/19/17 16:51 Provider Date of admission: 01/26/18 15:15 Primary care physician: PCP NONE Discharging clinician: [facility] Exam - Constitutional Vitals: Temp Pulse Resp BP 97.4 F L 83 16 120/72 01/29/18 09:00 01/29/18 09:00 01/29/18 09:00 01/29/18 09:00 General appearance: age & developmentally appropriate, well-groomed, well- nourished, obese - Musculoskeletal Gait: normal Station: relaxed Strength & Tone: normal for patient - Psychiatric Patient Orientation: Yes Person, Yes Time, Yes Place Level of alertness: Alert Behavior: calm, cooperative Psychomotor activity: Normal Eye Contact: Maintains Eye Contact Mood Description: Euthymic/stable Affect description: congruent with mood, full range Speech Volume: Normal Speech pattern: normal rate, normal rhythm, normal tone, fluent, spontaneous Language & Vocabulary: consistent with education Thought Process: Linear, Goal Oriented Thought Content: No Suicidal ideation, No Homicidal ideation, No Overt delusions Perceptual Disturbances: No Auditory hallucinations, No Visual hallucinations Attention Span Ability: Capable of Focused Attention Memory Description: Grossly Intact Patient Reliability: Reliable Historian Fund of knowledge: Yes abstraction ability, Yes aware of current events Intelligence Estimate: Average Judgment: Limited Insight: Partial Hospital Course Hospital course: Mr. Barlow is a 57 year old male admitted from the medical after an overdose in a suicide attempt. For details of admission please see H&P On the unit patient was started on Effexor XR 75 mg in addition to his Lexapro. Patient responded well to medication and did not experience any significant side effects. He reported improved sleep and appetite. He participated in groups and activities. He was educated about his illness depression and his medication noncompliance. His diabetic control improved while he is in the hospital and he was medication compliant. His discharge plans were completed with follow-up after discharge. Prior to discharge patient was medically stable not suicidal tolerating medication without any problems and future oriented to increase his activities and stay occupied. He is discharged in stable condition. - Time Spent with Patient Total time spent providing and/or coordinating discharge services: Less than 30 minutes Assessment and Plan - Patient/Caregiver Discharge Instructions Activity: resume usual activities as tolerated Diet: regular diet - Follow up Plan Follow up with: [facility] [Outside] - 03/03/18 9:00 am (The above appointment is with Arleen Mcdonald for outpatient psychiatric assessment and medication management services. You have another appointment scheduled with her on 2017 at 3:30pm. Please arrive 10 minutes early to all appointments to complete the check-in process. Please bring your insurance card (or [facility] award letter) and photo ID. If you are unable to keep any scheduled appointment, 24 hour business notice of cancellation is expected. The above appointment(s) reflects first availability. You may contact the office regularly to check for cancellations that may allow you to be seen sooner. ) [facility] [Outside] - 02/02/18 9:00 am (To begin serives, you may walk-in any Thursday morning at 9:00am. New clients are seen in the order of arrival. If you wish to be seen sooner, you may arrive as early as 8: 00am to hold you place in line. Please bring your insurance card and photo ID.) Functional capacity at discharge: independent ambulation Overall status at discharge: Stable Disposition: Home, Self-Care Quality - Multiple Antipsychotics Patient discharged on 2 or more antipsychotic medications: No Procedures - Procedures Procedures: Medication Management, Crisis Stabilization, Supportive Therapy, Group Therapy, Psychoeducational Therapy
== END 2018-01-29 13:40 | disposition home or self-care (01) | DRG 885 ==
LOC: 1ANU 15:15
PROVIDERS: ADMIT Psychiatry & Neurology Psychiatry; ATTEND Psychiatry & Neurology Psychiatry